=== PATIENT | female | born 1995 | race Caucasian/White ===

== ENCOUNTER 2017-07-12 21:53 | Emergency (ER) | payer MEDICAID, SELFPAY ==
[2017-07-12 21:54] VITALS: BP 137/103; PULSE 120; RESP 28; TEMP 37.2; O2SAT 98; BMI 24.3
[2017-07-12] MEDS: LORazepam 2 MG/ML Syringe IV (22:50)
[2017-07-12 23:00] LABS: Absolute Lymphocyte Count 3.78 X10^3/ul (0.83-4.51); Absolute Neutrophil Count 4.4 X10^3/uL (2.0-7.7); Basophil# 0.03 X10^3/uL; Basophil% 0.3 % (0-1); Eosinophil# 0.03 X10^3/uL; Eosinophils% 0.3 % (0-5); Hematocrit 40.4 % (37-47); Hemoglobin 13.8 g/dl (12.0-15.0); Lymphocyte # 3.78 X10^3/ul (4.0); Lymphocyte % 40.3 % (19-41); Mean Corp Hgb Conc 34.2 g/gl (32-36); Mean Corpuscular Hgb 29.2 pg (27.0-32.0); Mean Corpuscular Volume 85.6 fL (81-99); Mean Platelet Vol. 9.6 fl (6.2-12.0); Monocyte# 1.15 X10^3/uL; Monocyte% 12.2 % (0-10); Neutrophil # 4.38 X10^3/uL (2.7-7.7); Neutrophil % 46.7 % (47-70); Platelet Count 283 K/mm3 (150-450); RBC Distribution Width CV 12.9 % (11.6-14.6); RBC Distribution Width SD 39.9 fl (35.1-43.9); Red Blood Count 4.72 M/mm3 (4.2-5.4); White Blood Count 9.4 K/mm3 (4.4-11.0)
[2017-07-12 23:08] LABS: POSITIVE COUNT NO; POSITIVE DIFFERENTIAL NO; POSITIVE MORPHOLOGY NO
[2017-07-12 23:17] LABS: Anion Gap 8 (5-15); BUN 17 mg/dL (7-18); BUN/Creat Ratio 21.8 RATIO (10-20); Calcium,Total 8.9 mg/dL (8.5-10.1); Chloride 104 mmol/L (98-107); Creatinine, Serum 0.78 mg/dL (0.55-1.02); EST Glomerular Filtration Rate 98 mL/min (>60); Est Glom Filt Rate - Afr Amer 118 mL/min (>60); Estimated Creatinine Clearance 105.91 ml/min; Glucose 84 mg/dL (74-106); Potassium 3.8 mmol/L (3.5-5.1); Sodium Level 140 mmol/L (136-145)
[2017-07-12 23:25] LABS: Alcohol, Blood (Medical)-Serum < 3.0 mg/dL
[2017-07-12 23:43] LABS: Amphetamine Urine VISTA POSITIVE (<1000 ng/mL); Barbiturate Urine VISTA NEGATIVE (< 200 ng/mL); Benzodiazepine Urine VISTA NEGATIVE (< 200 ng/mL); Cocaine Urine VISTA NEGATIVE (< 300 ng/mL); Ecstacy Urine VISTA POSITIVE (< 500 ng/mL); Methadone Urine VISTA NEGATIVE (< 300 ng/mL); PCP Urine VISTA NEGATIVE (< 25 ng/mL); THC Urine VISTA POSITIVE (< 50 ng/mL); Vista UDS pH Range 5
[2017-07-13 00:14] VITALS: BP 137/68; PULSE 112; RESP 22; O2SAT 98
[2017-07-13 01:11] VITALS: RESP 20
--- NOTE | 2017-07-13 01:53 | ED.DCSUM_ITS ---
- ER Visit Summary Date of Service: 07/13/17 Chief Complaint: [Illicit drug use] History of Present Illness: The patient is a 22 F [presents to the emergency department stating that she used methamphetamines yesterday morning and has not been able to come down from her drug high since then. Patient used heroin this morning. Patient also admits to typically injecting meth as well as heroin. Patient feels anxious and jittery. Patient denies feeling suicidal or homicidal. Patient states that she knows the phone number to [facility] and will follow up with them as an outpatient to try to get help for her addiction. Patient denies recent illness.] Physical Examination: [HEENT-PERRLA, EOMI. Cranial nerves II through XII grossly intact. TMs clear. Mucous membranes moist. No adenopathy. Cardiovascular-regular and tachycardic. No murmurs auscultated. Lungs-clear to auscultation, chest wall stable without crepitus or subcu emphysema Abdomen-normoactive bowel sounds, soft, nontender, no rebound or rigidity, no peritoneal signs. Neuro exam-patient hyperactive with pressured speech. No focal neurologic deficits. Extremities-intact ?4, normal range of motion, normal pulses, atraumatic] Test Results: [CBC with differential was normal. Chemistries were normal. Alcohol was less than 3. Toxicology screen was positive for opiates, amphetamines, MDMA, and marijuana] Emergency Department Course and Treatment: [Patient received Ativan 2 mg IV and she was observed for over 3 hours. Patient felt improved and was much more relaxed and able to at this point sit still rather than pace. Patient's fianc? presented to the emergency department. Police also aware patient is here and she does have a warrant out for her arrest.] Treatment Plan: Discharge to home with recommendation that she follow up with [facility] for help with her addiction. [] Disposition: [Discharged home in stable condition] Impression: [Illicit drug use] This note was generated with [employer]Foundry dictation software. It may contain incorrect words, spelling, and punctuation that were not noted in review of the chart prior to signing ED Disposition - Plan for ED Patient: Chief Complaint: Overdose Referrals: Care Physician,No Primary [Primary Care Provider] -
--- NOTE | 2017-07-13 01:54 | ED.DEP ---
ED Disposition - Plan for ED Patient: Chief Complaint: Overdose Instructions: ED Drug Abuse General Referrals: Care Physician,No Primary [Primary Care Provider] - Additional Instructions: Follow up with [facility] for help with your addiction
[2017-07-13 02:21] VITALS: BP 142/71; PULSE 114; RESP 16; O2SAT 97
== END 2017-07-13 02:09 ==
LOC: ED 23:24
PROVIDERS: Emergency Provider Emergency Medicine
DX: F15.90 Other stimulant use, unspecified, uncomplicated (principal); F11.90 Opioid use, unspecified, uncomplicated; F12.90 Cannabis use, unspecified, uncomplicated; F19.90 Other psychoactive substance use, unspecified, uncomplicated; Z72.0 Tobacco use
CPT/HCPCS: 80048; 80307; 80320; 85025; 96374; 99285; A4216; G0480

== ENCOUNTER 2017-12-24 12:08 | Emergency (ER) | payer MEDICAID, SELFPAY ==
[2017-12-24 12:10] VITALS: PULSE 87; RESP 20; TEMP 36.5; O2SAT 97; BMI 25.8
--- NOTE | 2017-12-24 12:51 | ED.RN ---
Addendum entered by Razia Hastings 12/24/17 13:07: PT WAS BROUGHT IN BY [facility]. THEY REMAINED AT BEDSIDE WITH PT. PT WAS SEEN EARLIER AT [facility] AND HAD BEEN MEDICALLY CLEARED TO GO TO THE NURSING HOME PER SHERIFF NOLAND. THE NURSING HOME THEN SENT HER TO ER. PT CONTINUED TO STATE SHE DIDN'T WANT TO BE HERE AND DIDN'T WANT TO GO BACK TO A ROOM. PT ADMITTED TO USING METH AND WAS ABLE TO ANSWER ALL QUESTIONS APPROPRIATELY. [employer] OFFICER CONTACTED PT'S GRANDPARENTS AND GRANDFATHER CAME TO THE ER. HE AGREED TO TAKE PT HOME WITH HIM. PT WAS OFFERED A MEDICAL EXAM BY THE DR BUT SHE REFUSED. PT AMBULATED FROM ER WITH FAMILY AND POLICE OFFICERS. Original Note: PT WAS BROUGHT IN BY [facility]. THEY REMAINED AT THE BEDSIDE. [employer]O OFFICER CONTACTED PTS GRANDFATHER AND HE ARRIVED AND AGREED TO TAKE PT WITH HIM. PT LEFT PRIOR TO DR SEEING HER.
== END 2017-12-24 12:54 | disposition left against medical advice (07) ==
LOC: ED 12:52
PROVIDERS: Emergency Provider Emergency Medicine
DX: R69 Illness, unspecified (principal)

== ENCOUNTER 2018-07-13 08:25 | Emergency (ER) | payer MEDICAID, SELFPAY ==
[2018-07-13 08:26] VITALS: BP 116/87; PULSE 77; RESP 20; TEMP 37.3; O2SAT 96; BMI 29.0
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
--- NOTE | 2018-07-13 09:04 | ED.RN ---
[place] [employer] OFFICER YUKO STOPPED UP TO SPEAK WITH PT REGARDING MULTIPLE COMPLAINTS. THE OFFICER GAVE HER A BUSINESS CARD AND ENCOURAGED HER TO FOLLOW UP WITH HIM
== END 2018-07-13 09:16 | disposition home or self-care (01) ==
PROVIDERS: Emergency Provider Emergency Medicine
DX: F15.10 Other stimulant abuse, uncomplicated (principal); F12.10 Cannabis abuse, uncomplicated; L03.011 Cellulitis of right finger; L03.032 Cellulitis of left toe
CPT/HCPCS: 99284

== ENCOUNTER 2018-08-22 22:07 | Emergency (ER) | payer MEDICAID, SELFPAY ==
[2018-08-22 22:11] VITALS: BP 108/75; PULSE 115; RESP 18; TEMP 36.4; O2SAT 97; BMI 25.8
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
[2018-08-23 00:08] LABS: Vista UDS pH Range 5
[2018-08-23 00:11] LABS: Anion Gap 6 (5-15); BUN 11 mg/dL (7-18); BUN/Creat Ratio 13.9 RATIO (10-20); Calcium,Total 8.4 mg/dL (8.5-10.1); Chloride 102 mmol/L (98-107); Creatinine, Serum 0.79 mg/dL (0.55-1.02); EST Glomerular Filtration Rate 95 mL/min (>60); Est Glom Filt Rate - Afr Amer 115 mL/min (>60); Estimated Creatinine Clearance 103.68 ml/min; Glucose 103 mg/dL (74-106); Potassium 3.4 mmol/L (3.5-5.1); Sodium Level 138 mmol/L (136-145)
[2018-08-23 00:19] LABS: Amphetamine Urine VISTA POSITIVE (<1000 ng/mL); Barbiturate Urine VISTA NEGATIVE (< 200 ng/mL); Benzodiazepine Urine VISTA NEGATIVE (< 200 ng/mL); Cocaine Urine VISTA NEGATIVE (< 300 ng/mL); Ecstacy Urine VISTA NEGATIVE (< 500 ng/mL); Methadone Urine VISTA NEGATIVE (< 300 ng/mL); PCP Urine VISTA NEGATIVE (< 25 ng/mL); THC Urine VISTA POSITIVE (< 50 ng/mL)
[2018-08-23 00:31] LABS: Basophil% 0.2 % (0-1); Eosinophils% 1.3 % (0-5); Hematocrit 39.9 % (37-47); Hemoglobin 13.9 g/dl (12.0-15.0); Lymphocyte % 26.9 % (19-41); Mean Corp Hgb Conc 34.8 g/gl (32-36); Mean Corpuscular Hgb 30.1 pg (27.0-32.0); Mean Corpuscular Volume 86.4 fL (81-99); Mean Platelet Vol. 9.6 fl (6.2-12.0); Monocyte% 10.4 % (0-10); Neutrophil % 61.1 % (47-70); POSITIVE COUNT NO; POSITIVE DIFFERENTIAL NO; POSITIVE MORPHOLOGY NO; Platelet Count 248 K/mm3 (150-450); RBC Distribution Width CV 11.9 % (11.6-14.6); RBC Distribution Width SD 36.9 fl (35.1-43.9); Red Blood Count 4.62 M/mm3 (4.2-5.4); White Blood Count 8.4 K/mm3 (4.4-11.0)
[2018-08-23 00:32] LABS: Absolute Lymphocyte Count 2.27 X10^3/ul (0.83-4.51); Absolute Neutrophil Count 5.2 X10^3/uL (2.0-7.7); Basophil# 0.02 X10^3/uL; Eosinophil# 0.11 X10^3/uL; Lymphocyte # 2.27 X10^3/ul (4.0); Monocyte# 0.88 X10^3/uL; Neutrophil # 5.15 X10^3/uL (2.7-7.7)
--- NOTE | 2018-08-23 01:27 | NURSING ---
NELLY SILVESTRE GOT A VERBAL CONSENT FROM PATIENT AND TOLD US SHE HAD A POSITIVE TEST WHEN THERE ON THE 5TH
--- NOTE | 2018-08-23 01:53 | ED.RN ---
[facility] CALLED FOR TRANSPORT ETA 1 HR TO 1.5 HOURS
[2018-08-23 02:05] VITALS: BP 94/42; PULSE 63; RESP 12; TEMP 36.6; O2SAT 100
[2018-08-23 02:14] VITALS: BP 94/42; PULSE 64; RESP 12; TEMP 36.6; O2SAT 100
== END 2018-08-23 03:16 | disposition short-term general hospital (02) ==
PROVIDERS: Emergency Provider Emergency Medicine
DX: O9A.219 Injury, poisoning and certain other consequences of external causes complicating pregnancy, unspecified trimester (principal); T40.4X1A Poisoning by other synthetic narcotics, accidental (unintentional), initial encounter; Z3A.00 Weeks of gestation of pregnancy not specified; Y92.9 Unspecified place or not applicable
CPT/HCPCS: 36415; 80048; 80307; 80320; 85025; 99285; G0480

== ENCOUNTER 2018-09-28 05:17 | Emergency (ER) | payer MEDICAID, SELFPAY ==
[2018-09-28 05:18] VITALS: BP 121/77; PULSE 112; RESP 17; TEMP 37.1; O2SAT 98; BMI 24.2
--- NOTE | 2018-09-28 05:47 | ED.DCSUM_ITS ---
- ER Visit Summary Date of Service: 09/28/18 Chief Complaint: Rash History of Present Illness: The patient is a 23 F who presents with a rash. This been present for about 3 days. She reports subjective fever. She has noticed multiple scabbed red areas on her face and arms. She does have a history of methamphetamine abuse. Physical Examination: Heart rate 112 vitals otherwise normal Moist mucous membranes Heart regular tachycardia No respiratory distress Patient has multiple wounds over the face hands and arms consistent with skin picking some of these do appear to have some mild surrounding cellulitis. No abscesses. Test Results: Not indicated Emergency Department Course and Treatment: We will treat with Keflex. She understands return for new or worsening symptoms. She was discharged. Treatment Plan: [] Disposition: Discharge Impression: Cellulitis This note was generated with Sferra dictation software. It may contain incorrect words, spelling, and punctuation that were not noted in review of the chart prior to signing ED Disposition - Plan for ED Patient: Referrals: Care Physician,No Primary [Primary Care Provider] -
--- NOTE | 2018-09-28 05:48 | ED.DEP ---
ED Disposition - Plan for ED Patient: Instructions: Cellulitis Prescriptions: Cephalexin [Keflex] 500 mg PO Q6 #40 cap Prescription Printed Referrals: Care Physician,No Primary [Primary Care Provider] -
[2018-09-28 05:59] VITALS: BP 108/69; PULSE 105; RESP 18; O2SAT 100
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
== END 2018-09-28 06:02 | disposition home or self-care (01) ==
PROVIDERS: Emergency Provider Emergency Medicine
DX: L03.90 Cellulitis, unspecified (principal); F15.10 Other stimulant abuse, uncomplicated; Z72.0 Tobacco use
CPT/HCPCS: 99282

== ENCOUNTER 2018-11-10 23:20 | Emergency (ER) | payer MEDICAID, SELFPAY ==
[2018-11-10 23:20] VITALS: BP 123/74; PULSE 81; RESP 15; TEMP 36.7; BMI 24.2
--- NOTE | 2018-11-10 23:51 | ED.VISSUMM ---
- ER Visit Summary Date of Service: 11/10/18 Chief Complaint: Left long finger laceration. History of Present Illness: The patient is a 23 F who presents with a superficial laceration on her left long finger. She states she cut it on glass. This occurred a while ago. No other complaints. Physical Examination: Afebrile vitals unremarkable Heart regular rate and rhythm Lungs clear There is a superficial 0.5 cm laceration on the back of the left long finger between the PIP and DIP normal range of motion no bleeding Test Results: Not indicated Emergency Department Course and Treatment: Patient presents with a small very superficial wound. No wound closure is necessary. We will cleanse and dress this and the patient will be discharged. Treatment Plan: [] Disposition: Discharge Impression: Left long finger laceration This note was generated with [employer] dictation software. It may contain incorrect words, spelling, and punctuation that were not noted in review of the chart prior to signing ED Disposition - Plan for ED Patient: Referrals: Care Physician,No Primary [Primary Care Provider] -
--- NOTE | 2018-11-10 23:52 | ED.DEP ---
ED Disposition - Plan for ED Patient: Instructions: LACERATION, Small/superficial, Not sutured Referrals: Care Physician,No Primary [Primary Care Provider] -
[2018-11-11 00:10] VITALS: RESP 18
--- NOTE | 2018-11-11 00:19 | ED.RN ---
making contact with [facility] for possible rehab placement. patient at this not able to stay awake during assessment from [facility] for rehab. patient has a possible bed at rehab in [place].Patient needs to be more awake to be admitted. at this time we will watch patient and give [facility] a call back when patient is more awake and willing to answer questions
[2018-11-11 06:00] VITALS: RESP 14
[2018-11-11 10:44] VITALS: RESP 18
== END 2018-11-11 10:46 | disposition short-term general hospital (02) ==
PROVIDERS: Emergency Provider Emergency Medicine
DX: S61.213A Laceration without foreign body of left middle finger without damage to nail, initial encounter (principal); W25.XXXA Contact with sharp glass, initial encounter; Y93.9 Activity, unspecified; Y92.9 Unspecified place or not applicable
CPT/HCPCS: 99282

== ENCOUNTER 2018-12-05 10:14 | Emergency (ER) | payer MEDICAID, SELFPAY ==
[2018-12-05 10:17] VITALS: BP 131/87; PULSE 117; RESP 18; TEMP 36.4; O2SAT 97; BMI 28.1
--- NOTE | 2018-12-05 10:33 | RAD_ITS ---
STUDY: X-RAY - RIGHT HAND REASON FOR EXAM: Female, 23 years old. Redness and swelling of the third digit. TECHNIQUE: 3 view(s) of the hand. COMPARISON: None. FINDINGS: Normal radiocarpal articulation. Normal distal radioulnar joint. Normal visualized carpal bones. Normal carpal articulations Normal carpometacarpal articulation of the thumb. Normal second through fifth carpometacarpal joints. Normal metacarpi. Normal metacarpophalangeal joint of the thumb. Normal interphalangeal joint of the thumb. Normal proximal and distal phalanges of the thumb. Normal metacarpophalangeal joints of the second through fifth fingers. Normal proximal and distal interphalangeal joints of the second through fifth fingers. Normal phalanges of the second through fifth fingers. Soft tissue swelling. RAD/Hand Min 3 Views IMPRESSION: Soft tissue swelling. Electronically Signed: Ludwin Lincoln, at 11:20 EDT , Service support ,
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
--- NOTE | 2018-12-05 10:39 | NURSING ---
CALLED DR FLORES'S OFFICE. IS OUT OF THE OFFICE, THEY ARE TAKING INFO FROM DR OSBORN
--- NOTE | 2018-12-05 11:05 | NURSING ---
CALLED [facility] FOR TRANSFER
[2018-12-05] MEDS: HYDROcodone Bitartrate/Apap 5/325 Tablet PO (12:34)
--- NOTE | 2018-12-05 13:09 | NURSING ---
GOING TO [facility]
[2018-12-05 14:25] VITALS: BP 104/68; PULSE 103; RESP 18; O2SAT 98
--- NOTE | 2018-12-05 14:27 | ED.RN ---
TRANSPORT AT BEDSIDE. REPORT GIVEN. DENIES QUESTIONS.
== END 2018-12-05 14:28 | disposition short-term general hospital (02) ==
PROVIDERS: Emergency Provider Emergency Medicine
DX: O99.712 Diseases of the skin and subcutaneous tissue complicating pregnancy, second trimester (principal); L03.011 Cellulitis of right finger; O99.322 Drug use complicating pregnancy, second trimester; F19.10 Other psychoactive substance abuse, uncomplicated; O99.332 Smoking (tobacco) complicating pregnancy, second trimester; F17.200 Nicotine dependence, unspecified, uncomplicated; Z3A.00 Weeks of gestation of pregnancy not specified
CPT/HCPCS: 73130; 99285; A4216

== ENCOUNTER 2019-01-14 13:57 | Emergency (ER) | payer MEDICAID, SELFPAY ==
[2019-01-14 13:58] VITALS: TEMP 36.6; BMI 29.9
--- NOTE | 2019-01-14 14:07 | ED.RN ---
pt left without vs being checked and refused. pt aware of concerns for baby but states it is fine. pt leaves without being seen by the dr. pt did allow heartrte to be checked and was in the 130's. it was difficult because the pt was unable to remain completely still.
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
== END 2019-01-14 14:26 | disposition left against medical advice (07) ==
PROVIDERS: Emergency Provider Emergency Medicine
DX: Z53.21 Procedure and treatment not carried out due to patient leaving prior to being seen by health care provider (principal)
CPT/HCPCS: 99282

== ENCOUNTER 2019-02-16 01:40 | Outpatient (CLI) | payer MEDICAID, SELFPAY ==
[2019-02-16 02:38] VITALS: BMI 27.4
[2019-02-16 03:19] LABS: Absolute Lymphocyte Count 1.75 X10^3/uL (0.83-4.51); Absolute Neutrophil Count 5.6 X10^3/uL (2.0-7.7); Basophil# 0.03 X10^3/uL; Basophil% 0.4 % (0-1); Eosinophil# 0.09 X10^3/uL; Eosinophils% 1.1 % (0-5); Hematocrit 30.9 % (37-47); Hemoglobin 10.4 g/dL (12.0-15.0); Lymphocyte # 1.75 X10^3/ul (4.0); Lymphocyte % 21.8 % (19-41); Mean Corp Hgb Conc 33.7 g/dL (32-36); Mean Corpuscular Hgb 28.3 pg (27.0-32.0); Mean Corpuscular Volume 84.2 fL (81-99); Mean Platelet Vol. 9.6 fl (6.2-12.0); Monocyte# 0.55 X10^3/uL; Monocyte% 6.8 % (0-10); NRBC Flagged by Analyzer 0 % (0-5); Neutrophil # 5.58 X10^3/uL (2.7-7.7); Neutrophil % 69.5 % (47-70); Platelet Count 319 K/mm3 (150-450); RBC Distribution Width CV 11.9 % (11.6-14.6); RBC Distribution Width SD 36.6 fl (35.1-43.9); Red Blood Count 3.67 M/mm3 (4.2-5.4)
[2019-02-16 03:51] LABS: ALB/GLOB Ratio 0.4 RATIO (0.9-2.4); AST(SGOT) 41 U/L (15-37); Alanine Aminotransfer ALT/SGPT 42 U/L (13-56); Albumin, Serum 2.1 g/dL (3.2-5.0); Alkaline Phosphatase 151 U/L (45-117); Anion Gap 10 (5-15); BUN 14 mg/dL (7-18); BUN/Creat Ratio 19.6 RATIO (10-20); Calcium,Total 8.2 mg/dL (8.5-10.1); Chloride 102 mmol/L (98-107); Creatinine, Serum 0.72 mg/dL (0.55-1.02); EST Glomerular Filtration Rate 106 mL/min (>60); Est Glom Filt Rate - Afr Amer 129 mL/min (>60); Estimated Creatinine Clearance 112.79 ml/min; Globulin 4.7 g/dL (2.2-4.2); Glucose 100 mg/dL (74-106); Potassium 3.3 mmol/L (3.5-5.1); Protein, Total 6.8 g/dL (6.4-8.2); Sodium Level 137 mmol/L (136-145)
[2019-02-16 04:13] LABS: Amphetamine Urine VISTA POSITIVE (<1000 ng/mL); Barbiturate Urine VISTA NEGATIVE (< 200 ng/mL); Benzodiazepine Urine VISTA NEGATIVE (< 200 ng/mL); Cocaine Urine VISTA NEGATIVE (< 300 ng/mL); Ecstacy Urine VISTA NEGATIVE (< 500 ng/mL); Methadone Urine VISTA NEGATIVE (< 300 ng/mL); PCP Urine VISTA NEGATIVE (< 25 ng/mL); THC Urine VISTA POSITIVE (< 50 ng/mL); Vista UDS pH Range 6
--- NOTE | 2019-02-16 05:36 | NURSING ---
Patient signed out AMA at 0248. No discharge medical screening score completed for this reason.
[2019-02-16 07:32] LABS: Hemoglobin A1c 5.5 % (4.2-6.3)
[2019-02-19 11:45] LABS: HCV Quant. RNA PCR <15 IU/mL (.)
--- NOTE | 2019-02-19 13:16 | OB.TRI.HP_ITS ---
History of Present Illness Date of Service: 02/16/19 Reason For Visit: R/O Date of Service: 02/16/19 Final MARYANN: 04/18/19 Gestational age: 31 Weeks and 2 Days Allergies No Known Allergies Allergy (Verified 12/05/18 10:16) Laboratory Studies: Laboratory Tests 02/16/19 02/16/19 02/16/19 Range/Units 02:45 02:45 02:45 WBC (4.4-11.0) K/mm3 RBC (4.2-5.4) M/mm3 Hgb (12.0-15.0) g/dL Hct (37-47) % MCV (81-99) fL MCH (27.0-32.0) pg MCHC (32-36) g/dL RDW Std Deviation (35.1-43.9) fl RDW Coeff of He (11.6-14.6) % Plt Count (150-450) K/mm3 MPV (6.2-12.0) fl Immature Gran % (Auto) (0.0-0.9) % Neut % (Auto) (47-70) % Lymph % (Auto) (19-41) % Childress % (Auto) (0-10) % Eos % (Auto) (0-5) % Baso % (Auto) (0-1) % Absolute Neuts (auto) (2.0-7.7) X10^3/uL Absolute Lymphs (auto) (0.83-4.51) X10^3/uL Nucleated RBC % (0-5) % Sodium (136-145) mmol/L Potassium (3.5-5.1) mmol/L Chloride (98-107) mmol/L Carbon Dioxide (21.0-32.0) mmol/L Anion Gap (5-15) BUN (7-18) mg/dL Creatinine (0.55-1.02) mg/dL Estim Creat Clear Calc ml/min Est GFR (MDRD) Af Amer (>60) mL/min Est GFR (MDRD) Non-Af (>60) mL/min BUN/Creatinine Ratio (10-20) RATIO Glucose (74-106) mg/dL Hemoglobin A1c (4.2-6.3) % Calcium (8.5-10.1) mg/dL Total Bilirubin (0.20-1.00) mg/dL AST (15-37) U/L ALT (13-56) U/L Alkaline Phosphatase (45-117) U/L Total Protein (6.4-8.2) g/dL Albumin (3.2-5.0) g/dL Globulin (2.2-4.2) g/dL Albumin/Globulin Ratio (0.9-2.4) RATIO Urine Opiates Screen POSITIVE H (< 300 ng/mL) Urine Methadone Screen NEGATIVE (< 300 ng/mL) Ur Barbiturates Screen NEGATIVE (< 200 ng/mL) Ur Phencyclidine Scrn NEGATIVE (< 25 ng/mL) Ur Amphetamines Screen POSITIVE H (<1000 ng/mL) U Methamphetamin-MDMA NEGATIVE (< 500 ng/mL) U Benzodiazepines Scrn NEGATIVE (< 200 ng/mL) Urine Cocaine Screen NEGATIVE (< 300 ng/mL) U Cannabinoids Screen POSITIVE H (< 50 ng/mL) Ur Drug Screen Comment HCV RNA Quant (PCR) <15 (.) IU/mL HCV RNA (PCR) IU log10 TNP HCV RNA PCR Test Info Comment (.) Blood Type O NEGATIVE Antibody Screen NEGATIVE 02/16/19 02/16/19 02/16/19 Range/Units 02:45 02:45 02:45 WBC 8.0 (4.4-11.0) K/mm3 RBC 3.67 L (4.2-5.4) M/mm3 Hgb 10.4 L (12.0-15.0) g/dL Hct 30.9 L (37-47) % MCV 84.2 (81-99) fL MCH 28.3 (27.0-32.0) pg MCHC 33.7 (32-36) g/dL RDW Std Deviation 36.6 (35.1-43.9) fl RDW Coeff of He 11.9 (11.6-14.6) % Plt Count 319 (150-450) K/mm3 MPV 9.6 (6.2-12.0) fl Immature Gran % (Auto) 0.400 (0.0-0.9) % Neut % (Auto) 69.5 (47-70) % Lymph % (Auto) 21.8 (19-41) % Childress % (Auto) 6.8 (0-10) % Eos % (Auto) 1.1 (0-5) % Baso % (Auto) 0.4 (0-1) % Absolute Neuts (auto) 5.6 (2.0-7.7) X10^3/uL Absolute Lymphs (auto) 1.75 (0.83-4.51) X10^3/uL Nucleated RBC % 0 (0-5) % Sodium 137 (136-145) mmol/L Potassium 3.3 L (3.5-5.1) mmol/L Chloride 102 (98-107) mmol/L Carbon Dioxide 25.0 (21.0-32.0) mmol/L Anion Gap 10 (5-15) BUN 14 (7-18) mg/dL Creatinine 0.72 (0.55-1.02) mg/dL Estim Creat Clear Calc 112.79 ml/min Est GFR (MDRD) Af Amer 129 (>60) mL/min Est GFR (MDRD) Non-Af 106 (>60) mL/min BUN/Creatinine Ratio 19.6 (10-20) RATIO Glucose 100 (74-106) mg/dL Hemoglobin A1c 5.5 (4.2-6.3) % Calcium 8.2 L (8.5-10.1) mg/dL Total Bilirubin 0.40 (0.20-1.00) mg/dL AST 41 H (15-37) U/L ALT 42 (13-56) U/L Alkaline Phosphatase 151 H (45-117) U/L Total Protein 6.8 (6.4-8.2) g/dL Albumin 2.1 L (3.2-5.0) g/dL Globulin 4.7 H (2.2-4.2) g/dL Albumin/Globulin Ratio 0.4 L (0.9-2.4) RATIO Urine Opiates Screen (< 300 ng/mL) Urine Methadone Screen (< 300 ng/mL) Ur Barbiturates Screen (< 200 ng/mL) Ur Phencyclidine Scrn (< 25 ng/mL) Ur Amphetamines Screen (<1000 ng/mL) U Methamphetamin-MDMA (< 500 ng/mL) U Benzodiazepines Scrn (< 200 ng/mL) Urine Cocaine Screen (< 300 ng/mL) U Cannabinoids Screen (< 50 ng/mL) Ur Drug Screen Comment HCV RNA Quant (PCR) (.) IU/mL HCV RNA (PCR) IU log10 HCV RNA PCR Test Info (.) Blood Type Antibody Screen NST - FHR Rate Baby A Baseline: 130 Variability:: Moderate Accelerations:: 15 x 15 Decelerations:: None NST Reactive:: Yes, Appropriate for gestational age FHR Category:: Category I Uterine Activity:: irreg ctxs Impression/Plan 24-year-old 2 para 1 at 31+ gestational weeks, risk multigravida, hepatitis C infection, 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 labor. Patient was evaluated and found not to be in labor. She is to follow-up with her primary INVESTMENT ANALYST as scheduled or as needed. Return with any other questions or concerns.
[2019-02-21 03:06] LABS: Amphetamine Positive (.); AmphetamineGC/MS Conf 3250 ng/mL (Cutoff=500); Methamphetamines Positive (.)
[2019-02-21 06:49] LABS: Amphetamine Ur Confirm Positive (.)
== END 2019-02-16 02:48 | disposition home or self-care (01) ==
LOC: WPOUT 01:56 → WP 01:57
PROVIDERS: Referring Provider Obstetrics & Gynecology; Visit Provider Obstetrics & Gynecology
DX: O98.413 Viral hepatitis complicating pregnancy, third trimester (principal); B19.20 Unspecified viral hepatitis C without hepatic coma; O99.323 Drug use complicating pregnancy, third trimester; F12.10 Cannabis abuse, uncomplicated; F11.10 Opioid abuse, uncomplicated; F15.10 Other stimulant abuse, uncomplicated; O60.03 Preterm labor without delivery, third trimester; Z3A.31 31 weeks gestation of pregnancy
CPT/HCPCS: 59025; 59050; 80053; 80307; 83036; 85025; 86850; 86900; 86901; 87522; 99218; G0378

== ENCOUNTER 2019-06-10 16:39 | Emergency (ER) | payer MEDICAID, SELFPAY ==
[2019-02-28 13:26] VITALS: BMI 27.1
[2019-06-10 16:42] VITALS: BP 112/81; PULSE 122; RESP 16; TEMP 37.2; O2SAT 98; BMI 24.6
--- NOTE | 2019-06-10 17:28 | RAD_ITS ---
STUDY: X-RAY - RIGHT HAND REASON FOR EXAM: Female, 24 years old. Punched a wall. Pain. TECHNIQUE: 3 view(s) of the hand. COMPARISON: None. FINDINGS: Normal radiocarpal articulation. Normal distal radioulnar joint. Normal visualized carpal bones. Normal carpal articulations Normal carpometacarpal articulation of the thumb. Normal second through fifth carpometacarpal joints. Normal metacarpi. Normal metacarpophalangeal joint of the thumb. Normal interphalangeal joint of the thumb. Normal proximal and distal phalanges of the thumb. Normal metacarpophalangeal joints of the second through fifth fingers. Normal proximal and distal interphalangeal joints of the second through fifth fingers. Normal phalanges of the second through fifth fingers. There is soft tissue swelling over the dorsum of the hand. RAD/Hand Min 3 Views IMPRESSION: Soft tissue swelling without visualized fracture or dislocation. Electronically Signed: Eriberto Logan DO at 18:36 EST Tel [phone], Service support ,
--- NOTE | 2019-06-10 17:28 | RAD_ITS ---
STUDY: X-RAY CHEST REASON FOR EXAM: Female, 24 years old. Opioid withdrawal at 33 weeks'' . Short of breath. TECHNIQUE: Single AP portable view of the chest. COMPARISON: None. FINDINGS: The lungs are clear and expanded. There is no demonstrated pleural abnormality. Normal size heart. Normal mediastinum and trista. Normal visualized pulmonary arteries. Normal visualized aortic arch and descending thoracic aorta. Normal visualized thoracic spine. Normal visualized ribs, clavicles, and shoulders. There is no demonstrated abnormality of the visualized soft tissue structures of the upper abdomen. RAD/Chest PA and Lateral IMPRESSION: No acute cardiopulmonary disease. Electronically Signed: Eriberto Logan DO at 18:31 EST Tel [phone], Service support ,
[2019-06-10] MEDS: Ondansetron ODT 4 MG Tablet PO (17:54)
--- NOTE | 2019-06-10 18:20 | ED.DCSUM_ITS ---
- ER Visit Summary Date of Service: 06/10/19 Chief Complaint: Right hand pain History of Present Illness: The patient is a 24 F with no primary care physician. She reports that 2 days ago she punched a wall because she was angry. She has a sharp pain over her the back of her hand that is 9 out of 10 in severity. She is right-hand dominant. Patient reports that just prior to coming emerge department a mirror shattered and fell on her. She states that she has glass in her right ring finger, chin, right fourth toe, and back. Her tetanus is up-to-date. Physical Examination: Vitals: Stable. Afebrile. General: Well-nourished and well-developed. Head: Normocephalic atraumatic. Neck: Supple, no lymphadenopathy. No JVD. Nontender. Cardiovascular: Regular rate and rhythm. No murmurs. Respiratory: No respiratory distress. Clear to auscultation bilaterally. Abdominal: Soft, nontender, nondistended, normal bowel sounds. No guarding, rebound, or peritoneal signs. Back: Nontender. Extremities: Mild soft tissue swelling and contusion to the back of her right fourth and fifth metacarpals. She is neuro vas intact distal to this, no edema. Skin: Patient has multiple superficial erosions over her face her upper and lower extremities and her trunk from picking. I do not appreciate glass in any of these. She has track eric to her right forearm without erythema, induration, or fluctuance to suggest infection.. Neurologic: Alert and oriented ?3. Cranial nerves II through XII are intact. Normal strength and sensation. Psych: Agitated and clearly intoxicated. Test Results: Clinical Impression(s) from Imaging Studies Chest X-Ray 06/10/19 17:28 IMPRESSION: No acute cardiopulmonary disease. Electronically Signed: Eriberto Logan DO at 18:31 EST Tel [phone], Service support , Hand X-Ray 06/10/19 17:28 IMPRESSION: Soft tissue swelling without visualized fracture or dislocation. Electronically Signed: Eriberto Logan DO at 18:36 EST Tel [phone], Service support , Emergency Department Course and Treatment: I discussed with the patient that I do not think that there is glass stuck in the areas that she is complaining of. I certainly do not feel any glass or see a wound underneath her chin. She does not have glass underneath her toenail. I x-rayed her hand and I do not see any glass on the x-ray. I do not think that trying to remove glass from all of these places in her best interest. She asked for tweezers to remove this herself. I think that that is an even worse plan as the patient is currently high on amphetamines and picking the entire time she is here. Treatment Plan: Patient will be discharged with instructions to follow-up [facility] in 1 to 2 days if not improving. She is also instructed to follow-up with the [facility] as soon as possible. Return to the emergency department for any worsening symptoms. Disposition: To home in improved and stable condition. Impression: 1. Right hand contusion. 2. Methamphetamine abuse. 3. Opiate abuse. This note was generated with [employer] software. It may contain incorrect words, spelling, and punctuation that were not noted in review of the chart prior to signing ED Disposition - Plan for ED Patient: Disposition: Home or Assisted Living Instructions: CONTUSION, Hand Referrals: [facility] [NON-STAFF] - 1 Week if not improving
[2019-06-10 18:29] VITALS: PULSE 118; RESP 16; O2SAT 98
== END 2019-06-10 18:30 | disposition home or self-care (01) ==
PROVIDERS: Emergency Provider Emergency Medicine
DX: S60.221A Contusion of right hand, initial encounter (principal); F15.10 Other stimulant abuse, uncomplicated; F11.10 Opioid abuse, uncomplicated; R05 Cough; X58.XXXA Exposure to other specified factors, initial encounter; Y93.9 Activity, unspecified; Y92.9 Unspecified place or not applicable; F17.200 Nicotine dependence, unspecified, uncomplicated
CPT/HCPCS: 71046; 73130; 99284

== ENCOUNTER 2019-06-11 01:41 | Emergency (ER) | payer MEDICAID, SELFPAY ==
[2019-06-10 16:42] VITALS: BMI 24.6
[2019-06-11 01:42] VITALS: BP 114/81; PULSE 103; RESP 14; TEMP 36.9; O2SAT 98; BMI 26.4
--- NOTE | 2019-06-11 02:25 | ED.DCSUM_ITS ---
- ER Visit Summary Date of Service: 06/11/19 Chief Complaint: Overdose History of Present Illness: The patient is a 24 F presenting per EMS after overdose. Patient was found on her bedroom floor. EMS was called. She had agonal respirations. She was given nasal Narcan and became responsive. In the ED she is now asymptomatic. She denies suicidal ideation. She states she must have accidentally injected too much fentanyl to get high. Denies other complaints. Physical Examination: Vitals are stable. Patient is afebrile. Alert no acute distress. HEENT exam is unremarkable. Neck is supple. Lungs are clear and equal bilaterally. Heart is regular rate and rhythm. Abdomen is soft nontender nondistended. Extremities are unremarkable. Skin is warm and dry. No focal neurologic deficit. Remainder of exam is unremarkable. Emergency Department Course and Treatment: She was observed in the ED. She remains asymptomatic. Her pulse ox remains 100% on room air. Advised to follow-up with [facility]. Advised return to ED for worsening complaints. Disposition: Discharge home Impression: Unintentional fentanyl overdose This note was generated with [employer] dictation software. It may contain incorrect words, spelling, and punctuation that were not noted in review of the chart prior to signing ED Disposition - Plan for ED Patient: Instructions: OVERDOSE, Opiate Referrals: [facility] [STAFF PHYSICIAN] -
--- NOTE | 2019-06-11 02:42 | ED.RN ---
Mom called, she will come and pt up. PT declines rape kit.
[2019-06-11 03:04] VITALS: BP 109/75; PULSE 105; RESP 18; O2SAT 100
== END 2019-06-11 03:05 | disposition home or self-care (01) ==
LOC: ED 02:35
PROVIDERS: Emergency Provider Emergency Medicine
DX: T40.4X1A Poisoning by other synthetic narcotics, accidental (unintentional), initial encounter (principal); Y92.9 Unspecified place or not applicable; F90.9 Attention-deficit hyperactivity disorder, unspecified type; Z72.0 Tobacco use
CPT/HCPCS: 99284

== ENCOUNTER 2019-06-19 14:22 | Emergency (ER) | payer MEDICAID, SELFPAY ==
[2019-06-19] VITALS (9 sets, daily range): BP systolic 103–135; BP diastolic 42–110; PULSE 84–110; RESP 16–18; TEMP 36.4; O2SAT 96–100; BMI 25.2
--- NOTE | 2019-06-19 14:29 | ED.VIS.GEN ---
History of Present Illness Chief Complaint: Substance Abuse Informant: Patient Limited by: Intoxicated Onset: Today Context: Sudden Onset Timing: Continuous Current Severity: Severe Maximum Severity: Severe Narrative: The patient is a 24-year-old female with medical history significant for polysubstance abuse that presents to the emergency department with acute methamphetamine intoxication. Police were called because of abnormal behavior. The patient states that she snorted 2 lines of what she thought was methamphetamine. She states I am having a bad trip. The patient is very internally stimulated, agitated, and aggressive. She denies being suicidal or homicidal, but history is hard to gather given her significant distress. The police states that she did not make any threats of self-harm. Prior similar symptoms: Yes Recent Illness/Hospitalization: No Past Medical History - Allergies and Home Meds Allergies/Adverse Reactions: Allergies No Known Allergies Allergy (Verified 06/19/19 14:32) Primary Care Physician: Care Physician,No Primary [Primary Care Provider] - Prior records reviewed: Yes Past Medical History: - - Substance abuse Smoking Status: Current every day smoker Review of Systems General: Denies: Chills, Fever, Sweats Eyes: Denies: Visual changes - bilaterally, Diplopia ENT: Denies: Rhinorrhea, Sore throat Cardiovascular: Denies: Chest pain, Palpitations Respiratory: Denies: Dyspnea, Cough, Dyspnea on exertion Gastrointestinal: Denies: Abdominal pain, Nausea, Vomiting, Diarrhea, Melena, Hematochezia Genitourinary: Denies: Dysuria, Hematuria, Frequency Musculoskeletal: Denies: Back pain, Extremity Pain Skin: Denies: Rash, Wounds Neurological: Denies: Headache, Weakness, Numbness Psych: Reports: Anxiety Physical Exam Inital Vital Signs reviewed: Yes General: Unkempt Head: Normocephalic, Atraumatic Eyes: Perrl ENT: Moist mucous membranes, No rhinorrhea Neck: Supple, Nontender, No lymphadenopathy Cardiovascular: Regular rate, Tachycardia Respiratory: No distress, CTA bilaterally, Chest nontender Abdomen: Soft, Nontender, Nondistended Back: Nontender Extremities: Nontender Skin: Normal color. Negative for: Cyanosis, Pallor, Rash Neurological: Hyperalert Psychological: Agitated Diagnostic/Tx/Re-eval - Medical Decision Making The patient presents with drug intoxication. She is internally stimulated. She denies being suicidal or homicidal, but is markedly agitated and aggressive. The patient was given IM medications of Geodon, Benadryl, and Ativan. The patient will undergo metabolic screening and will be observed. As long as she has returned to her baseline, and has no psychiatric complaints, I do feel that she can safely be discharged with outpatient substance abuse information. She will be reevaluated by oncoming physician. Impression 1. Methamphetamine abuse with intoxication ED Disposition - Plan for ED Patient: Instructions: Drug Abuse Referrals: Care Physician,No Primary [Primary Care Provider] -
[2019-06-19] MEDS: DiphenhydrAMINE 50 MG/ML Syringe IM (14:40)
[2019-06-19] MEDS: Ziprasidone IM 20 MG/ML VIAL IM (14:40)
[2019-06-19] MEDS: LORazepam 2 MG/ML Syringe IM (14:40)
[2019-06-19 15:53] LABS: Absolute Lymphocyte Count 1.66 X10^3/uL (0.83-4.51); Absolute Neutrophil Count 14.7 X10^3/uL (2.0-7.7); Basophil# 0.04 X10^3/uL; Basophil% 0.2 % (0-1); Eosinophil# 0.05 X10^3/uL; Eosinophils% 0.3 % (0-5); Hematocrit 34.2 % (37-47); Hemoglobin 10.9 g/dL (12.0-15.0); Lymphocyte # 1.66 X10^3/ul (4.0); Lymphocyte % 9.5 % (19-41); Mean Corp Hgb Conc 31.9 g/dL (32-36); Mean Corpuscular Hgb 24.8 pg (27.0-32.0); Mean Corpuscular Volume 77.7 fL (81-99); Mean Platelet Vol. 9.2 fl (6.2-12.0); Monocyte# 0.89 X10^3/uL; Monocyte% 5.1 % (0-10); NRBC Flagged by Analyzer 0 % (0-5); Neutrophil # 14.73 X10^3/uL (2.7-7.7); Neutrophil % 84.3 % (47-70); Platelet Count 329 K/mm3 (150-450); RBC Distribution Width CV 17.1 % (11.6-14.6); RBC Distribution Width SD 48.4 fl (35.1-43.9); White Blood Count 17.5 K/mm3 (4.4-11.0)
[2019-06-19 16:01] LABS: Internal QC Validated? YES +Cl - CLEAR BKGD; Pregnancy, Serum, hCG Quali. NEGATIVE Negative
[2019-06-19 16:05] LABS: Anion Gap 10 (5-15); BUN 24 mg/dL (7-18); BUN/Creat Ratio 29.4 RATIO (10-20); Calcium,Total 8.6 mg/dL (8.5-10.1); Chloride 104 mmol/L (98-107); Creatinine, Serum 0.82 mg/dL (0.55-1.02); EST Glomerular Filtration Rate 91 mL/min (>60); Est Glom Filt Rate - Afr Amer 111 mL/min (>60); Estimated Creatinine Clearance 99.03 ml/min; Glucose 61 mg/dL (74-106); Sodium Level 139 mmol/L (136-145)
[2019-06-19 16:31] LABS: Alcohol, Blood (Medical)-Serum < 3.0 mg/dL
--- NOTE | 2019-06-19 23:22 | ED.RN ---
ATTEMPTED TO WAKE PT UP. PT UNABLE TO COMPLETELY OPEN HER EYES AND STAY AWAKE. DR SHAW NOTIFIED. WILL LET PT SLEEP LONGER AND ATTEMPT AGAIN
[2019-06-20 00:02] VITALS: BP 105/76; PULSE 82; RESP 16; O2SAT 98
--- NOTE | 2019-06-20 00:03 | ED.RN ---
THIS NURSE REVIEWED D/C INSTRUCTIONS WITH PT. PT VERBALIZED UNDERSTANDING. PT BEING TAKEN HOME BY JESSICA AKHTAR
== END 2019-06-20 00:05 | disposition home or self-care (01) ==
LOC: ED 15:20
PROVIDERS: Emergency Provider Emergency Medicine
DX: F15.129 Other stimulant abuse with intoxication, unspecified (principal); F17.200 Nicotine dependence, unspecified, uncomplicated
CPT/HCPCS: 80048; 80320; 84703; 85025; 96372; 99282; G0480; J3486

== ENCOUNTER 2019-08-04 18:53 | Emergency (ER) | payer MEDICAID, SELFPAY ==
[2019-06-19 14:24] VITALS: BMI 25.2
[2019-08-04 18:53] VITALS: BP 123/55; PULSE 107; RESP 17; TEMP 36.2; O2SAT 96; BMI 25.0
--- NOTE | 2019-08-04 19:07 | ED.VIS.GEN ---
History of Present Illness Chief Complaint: Abscess Informant: Patient Onset: Days Context: Gradual Onset Timing: Continuous Current Severity: Moderate Maximum Severity: Moderate Narrative: Patient is a 24-year-old female with history of methamphetamine abuse that presents to the emergency department with facial abscess. Patient states that she will get cellulitis from picking. She states that she has not been picking, but noticed an abscess about 2 days ago. She states that she did cut it and it did drain and decreased in size, but it is still red and painful. She does not think she is had fever. She denies any history of immunosuppression. She denies any trauma. She is on no daily medications. Prior similar symptoms: Yes Recent Illness/Hospitalization: Yes Past Medical History - Allergies and Home Meds Allergies/Adverse Reactions: Allergies No Known Allergies Allergy (Verified 08/04/19 18:53) Primary Care Physician: Care Physician,No Primary [Primary Care Provider] - Prior records reviewed: Yes Past Medical History: None Surgical History: no surgical history Smoking Status: Current every day smoker Review of Systems General: Denies: Chills, Fever, Sweats Eyes: Denies: Visual changes - bilaterally, Diplopia ENT: Denies: Rhinorrhea, Sore throat Cardiovascular: Denies: Chest pain, Palpitations Respiratory: Denies: Dyspnea, Cough, Dyspnea on exertion Gastrointestinal: Denies: Abdominal pain, Nausea, Vomiting, Diarrhea, Melena, Hematochezia Genitourinary: Denies: Dysuria, Hematuria, Frequency Musculoskeletal: Denies: Back pain, Extremity Pain Skin: Denies: Rash, Wounds Neurological: Denies: Headache, Weakness, Numbness Physical Exam Vital Signs/Narrative: Vital Signs Temp Pulse Resp BP Pulse Ox 08/04/19 18:53 97.2 F L 107 H 17 123/55 H 96 Inital Vital Signs reviewed: Yes General: Well nourished, Well developed, No Acute Distress Head: Normocephalic, Atraumatic, - - 2 cm ovoid abscess on the left forehead. No cellulitis or streaking. No fullness in the periorbital region. Eyes: Perrl, EOMI ENT: Moist mucous membranes, No rhinorrhea Neck: Supple, Nontender Cardiovascular: Regular rate, Regular rhythm, No murmurs Respiratory: No distress, CTA bilaterally, Chest nontender Abdomen: Soft, Nontender, Nondistended, Normal bowel sounds Back: Nontender, Normal Inspection Extremities: Nontender, No edema Skin: Normal color, No rash Neurological: Alert, Oriented x3, Cranial nerves II-XII grossly intact, Normal Strength, Normal Sensation Psychological: Normal affect, Normal Mood Diagnostic/Tx/Re-eval - Medical Decision Making The patient presents with facial abscess. I did feel this was going to require incision and drainage for appropriate care. The area was anesthetized with 3 cc of lidocaine with epinephrine. At the area of spontaneous drainage, hemostats were used to open it slightly as I did not to make an incision on the face. It did appear to be an infected sebaceous cyst. The entire cyst pocket was removed. As it does involve the face and the patient has history of MRSA, she will be placed on Bactrim. She was counseled on local wound care and reasons to return. She will be discharged home. Impression 1. Facial abscess with incision and drainage ED Disposition - Plan for ED Patient: Instructions: ED Abscess Incision And Drainage Prescriptions: Smz/Tmp Ds [Bactrim Ds] 1 tab PO BID #14 tab Prescription Printed Referrals: Care Physician,No Primary [Primary Care Provider] -
[2019-08-04 19:35] VITALS: RESP 17
== END 2019-08-04 19:40 | disposition home or self-care (01) ==
LOC: ED 19:42
PROVIDERS: Emergency Provider Emergency Medicine
DX: L02.01 Cutaneous abscess of face (principal); Z86.14 Personal history of Methicillin resistant Staphylococcus aureus infection; F17.200 Nicotine dependence, unspecified, uncomplicated
CPT/HCPCS: 10060; 99283

== ENCOUNTER 2019-12-27 01:17 | Emergency (ER) | payer MEDICAID, SELFPAY ==
[2019-12-27 01:18] VITALS: BP 117/80; PULSE 101; RESP 18; TEMP 36.3; O2SAT 99; BMI 27.3
--- NOTE | 2019-12-27 01:46 | ED.DCSUM_ITS ---
History of Present Illness Chief Complaint: Rash Informant: Patient Onset: Weeks Current Severity: Moderate Maximum Severity: Moderate Narrative: Patient present secondary to yeast infection and concern for scabies. She states in October her dog had mange. She is concerned that she contracted this from her dog. She has had problems with itching ever since. She states that she also has what she believes is a yeast infection. She states she was treated in early November at urgent care but symptoms have recurred and she is requesting the same treatment as it did seem to help. On review of records it appears she was given permethrin cream as well as p.o. Flagyl for bacterial vaginosis. The remainder of her STD testing at that time came back negative. - Past Medical History (1) ADHD Status: Chronic (2) Anxiety and depression Status: Chronic Past Medical History - Allergies and Home Meds Allergies/Adverse Reactions: Allergies No Known Allergies Allergy (Verified 12/27/19 01:21) Primary Care Physician: Care Physician,No Primary [Primary Care Provider] - Surgical History: no surgical history Smoking Status: Current every day smoker Review of Systems General: Denies: Chills, Fever Eyes: Denies: Visual changes - bilaterally ENT: Denies: Bilateral ear pain Cardiovascular: Denies: Chest pain Respiratory: Denies: Dyspnea, Cough Gastrointestinal: Denies: Abdominal pain, Vomiting Genitourinary: Reports: - - Vaginal discharge and itching Musculoskeletal: Denies: Neck pain, Back pain Skin: Reports: - - Itching diffusely on her skin. Neurological: Denies: Headache Hematologic: Denies: Easy bruising, Easy bleeding Allergy: Denies: Uticaria, Swelling of the mouth Physical Exam Vital Signs/Narrative: Vital Signs Temp Pulse Resp BP Pulse Ox 12/27/19 01:18 97.3 F L 101 H 18 117/80 99 Inital Vital Signs reviewed: Yes General: Well nourished, Well developed Head: Normocephalic ENT: Moist mucous membranes Neck: Supple Cardiovascular: Regular rate, Regular rhythm Respiratory: No distress, CTA bilaterally Abdomen: Soft, Nontender : - - Scant white discharge consistent with yeast infection noted on exam. She does have topical cream in place. No other lesions appreciated. Skin: - - At this time I do not see focal skin lesions consistent with scabies, however she does have diffuse itching. Neurological: Alert, Oriented x3 Psychological: Normal affect Diagnostic/Tx/Re-eval - Medical Decision Making Patient be given a dose of Diflucan here. She will be given prescription for Flagyl as well as permethrin cream similar to her last similar presentation. Although I do not see focal signs of scabies at this time she does have diffuse itching and she thinks it is going to lead into a full-fledged infestation like previous. ED Disposition - Plan for ED Patient: Disposition: Home or Assisted Living Diagnosis: Yeast vaginitis, Pruritus Instructions: ED [facility]OMAS VAGINITIS Prescriptions: metroNIDAZOLE [Flagyl] 500 mg PO BID #14 tab Transmission Status: Pending to [facility] Permethrin 5% [Permethrin] 60 gm TP X1 #1 tube Transmission Status: Pending to [facility] Referrals: Kirby Logan MD [STAFF PHYSICIAN] - As Needed
[2019-12-27] MEDS: Fluconazole 100 MG Tablet 200 MG PO (02:03)
== END 2019-12-27 02:04 | disposition home or self-care (01) ==
PROVIDERS: Emergency Provider Emergency Medicine
DX: B37.3 Candidiasis of vulva and vagina (principal); L29.9 Pruritus, unspecified; F90.9 Attention-deficit hyperactivity disorder, unspecified type; F17.200 Nicotine dependence, unspecified, uncomplicated
CPT/HCPCS: 99282

== ENCOUNTER 2020-04-12 10:23 | Emergency (ER) | payer MEDICAID, SELFPAY ==
[2020-04-12 10:24] VITALS: BP 115/101; PULSE 113; RESP 20; TEMP 36.6; O2SAT 98; BMI 28.0
--- NOTE | 2020-04-12 10:27 | ED.VIS.GEN ---
History of Present Illness Chief Complaint: Overdose Informant: Patient Narrative: 25-year-old female presenting with nausea. She states she has been clean of methamphetamine and fentanyl after detoxing in November but over the last weekend starting on Sunday she has been both snorting and shooting up meth. She inadvertently drank some hydrogen peroxide thinking it was her water bottle and stated that she threw up violently believes she threw it all up. Patient does not want detox. She is already in an outpatient program and in a clean house. - Past Medical History (1) Anxiety and depression Status: Chronic Past Medical History - Allergies and Home Meds Allergies/Adverse Reactions: Allergies No Known Allergies Allergy (Verified 04/12/20 10:28) Primary Care Physician: Care Physician,No Primary [Primary Care Provider] - Prior records reviewed: Yes Past Medical History: - - Reviewed in problem list Surgical History: no surgical history Lives: - - Sober house Smoking Status: Current every day smoker Drugs: - - Methamphetamine Review of Systems General: Denies: Chills, Fever, Sweats Eyes: Denies: Visual changes - bilaterally, Diplopia ENT: Denies: Rhinorrhea, Sore throat Respiratory: Denies: Dyspnea, Cough, Dyspnea on exertion Gastrointestinal: Denies: Abdominal pain, Nausea, Vomiting, Diarrhea, Melena, Hematochezia Genitourinary: Denies: Dysuria, Hematuria, Frequency Musculoskeletal: Denies: Back pain, Extremity Pain Skin: Denies: Rash, Wounds Neurological: Denies: Headache, Weakness, Numbness Psych: Reports: Anxiety. Denies: Suicidal thoughts, Suicidal ideations Physical Exam Inital Vital Signs reviewed: Yes General: Well nourished, No Acute Distress Head: Normocephalic, Atraumatic Eyes: Perrl, EOMI ENT: Moist mucous membranes, No rhinorrhea Cardiovascular: Regular rate, Regular rhythm Respiratory: No distress, CTA bilaterally Extremities: Nontender, No edema Skin: Normal color, No rash. Negative for: Cyanosis, Diaphoresis Neurological: Alert, Oriented x3, Cranial nerves II-XII grossly intact Psychological: - - Anxious. Negative for: Depressed, Tearful Diagnostic/Tx/Re-eval - Medical Decision Making Patient presents after ingestion of hydrogen peroxide. She states she is sure she vomited all up. She has some residual nausea. Vital signs are stable and she is afebrile. Patient is alert and oriented x3. She states that she just wants to go home and sleep it off. I feel that this is reasonable given the patient is feeling well. Patient does not want detox methamphetamine or fentanyl. She states she has outpatient treatment that she can follow-up with. Patient stable for discharge at this time. Impression: 1. Methamphetamine abuse 2. Nausea/vomiting ED Disposition - Plan for ED Patient: Disposition: Home or Assisted Living Instructions: ED Drug Abuse Prescriptions: Ondansetron [Zofran Odt] 4 mg PO Q8H PRN PRN #14 tab PRN Reason: Nausea Transmission Status: Received by [id number] Referrals: Care Physician,No Primary [Primary Care Provider] -
[2020-04-12] MEDS: Ondansetron ODT 4 MG Tablet PO (11:00)
== END 2020-04-12 11:08 | disposition home or self-care (01) ==
LOC: ED 11:04
PROVIDERS: Emergency Provider Student in an Organized Health Care Education/Training Program
DX: F15.10 Other stimulant abuse, uncomplicated (principal); R11.2 Nausea with vomiting, unspecified; F17.200 Nicotine dependence, unspecified, uncomplicated
CPT/HCPCS: 99283

== ENCOUNTER 2020-12-06 12:17 | Emergency (ER) | payer MEDICAID, SELFPAY ==
[2020-12-06 12:17] VITALS: BP 132/83; PULSE 76; RESP 18; TEMP 36.4; O2SAT 100; BMI 36.1
--- NOTE | 2020-12-06 12:25 | RAD_ITS ---
INDICATION: BACK PAIN EXAMINATION/TECHNIQUE: X-RAY - XR Spine Lumbar 2 or 3 Views COMPARISON: None. FINDINGS: VERTEBRAE: Preserved vertebral body height. No fracture. No spondylolisthesis. Preservation of the normal lumbar lordosis. No significant facet arthropathy. DISCS: Disc spaces are maintained. INCLUDED ABDOMEN: Included bowel gas pattern is non-obstructive. RAD/Lumbar Spine 2 or 3 Views IMPRESSION: No evidence of lumbar spinal fracture or spondylolisthesis. Electronically Signed: Lupillo Gamez MD at 13:01 EDT Tel , Service support ,
--- NOTE | 2020-12-06 12:40 | EDS_ITS ---
HPI History of Present Illness Chief Complaint: Back Detail of Chief Complaint: Back pain status post fall Informant: patient Onset/Context/Timing Onset: Yesterday Context: Sudden Onset Injury: fall (From standing position onto her right side) Timing: Continuous Quality: Dull and Aching Location: Lumbar and Left Leg Current Severity: Mild Maximum Severity: Moderate Worsened by: improves with Movement, Bending and Lifting Relieved by: Nothing Associated Symptoms Associated Symptoms: Radiation to Right Leg (Posterior to the mid left thigh) and - (Denies saddle paresthesia or anesthesia. Denies foot drop.); Negative for Numbness, Tingling, Abdominal Pain, Dysuria, Unable to Ambulate, Unable to Transfer, Urinary Retention, Urinary Incontinence, Constipation and Fecal Incontinence Narrative Narrative: Patient is a 25-year-old woman with history of scoliosis who presents with back pain after fall. She informed the nurse that she does not want any opiate analgesics. She denies bowel bladder dysfunction. She denies saddle paresthesia or anesthesia. She does report pain going down her left leg as previously documented. She denies buckling of her knees. She states her foot is dragging. She has no other complaints or symptoms. Prior similar symptoms: No Recent Illness/Hospitalization: No [facility] Medical History ADHD Anxiety Depression Hepatitis C History of chlamydia History of gonorrhea Rubella non-immune status, antepartum Home Medications NK 12/06/20 [History Last Taken Unknown] Allergy/AdvReac Type Severity Reaction Status Date / Time No Known Allergies Allergy Verified 12/06/20 12:17 Social History (Updated 12/06/20 @ 12:[address] Jimmy Echevarria MD) household members: none Smoking Status: Current every day smoker tobacco type: cigarettes alcohol intake: former substance use type: former substance user ROS ROS ED Constitutional Constitutional ED: Denies chills, fever(s), subjective or sweats Cardiovascular Cardiovascular: Denies chest pain or palpitations Respiratory/Chest Respiratory/Chest: Denies dyspnea or dyspnea on exertion Gastrointestinal Gastrointestinal: Denies abdominal pain, constipation, diarrhea, melena, nausea or vomiting Genitourinary Genitourinary ED: Denies dysuria, hematuria or urinary frequency Musculoskeletal Musculoskeletal: Reports back pain; Denies arthralgias, myalgias or neck pain Integumentary Denies Abrasions or rash Neurologic Neurologic: Denies paresthesias or weakness Hematologic/Lymphatic Hematologic/Lymphatic: Denies easy bleeding or easy bruising EXAM Physical Exam Const Vital Signs: 12/06/20 12:17 Temperature 97.5 F L Temperature Source Temporal Pulse Rate 76 Respiratory Rate 18 Blood Pressure 132/83 H Blood Pressure Mean 99 Pulse Ox 100 Oxygen Delivery Method Room Air Positive well nourished, well developed and obese General Appearance ED: well developed Nutritional Appearance: obese HEENT Reports moist mucous membranes HEENT Narrative: Head is atraumatic normocephalic. Ears are normal. Nares patent. Eyes PERRL and EOMs intact bilaterally General Eye ED: Negative for pale conjunctiva or scleral icterus Neck no lymphadenopathy, supple and no JVD Resp normal respiratory effort and clear to auscultation bilaterally Cardio regular rate, regular rhythm, S1 normal heart sound, S2 normal heart sound and no murmurs GI normal to inspection, nondistended, normoactive bowel sounds, soft to palpation and non-tender GI Narrative: There is no pain patient of the pelvis. Back/Spine normal to inspection; Negative for no thoracic nor lumbar tenderness General Back: Negative for CVA tenderness or scar(s) Cervical Spine: Negative for cervical spine tenderness and Negative for paracervical muscle tenderness Thoracic Spine / Upper Back: paraspinal muscle tenderness Lumbar Spine / Lower Back: straight leg raise negative bilaterally Extremity normal to inspection and no clubbing, cyanosis or edema General Extremety ED: Negative for edema or tenderness General Extremity: Negative for edema Neuro oriented x3 Neuro Narrative: There is no clonus. Gait was observed. She does not have a foot drop. She able to walk on her heels and toes. She is able to perform a 1 legged squat. She has normal sensation over L3, L4 and L5 dermatome. Sensorium / Orientation: alert Deep Tendon Reflexes: Rt Patellar (L4): 1+, Lt Patellar (L4): 1+, Rt Ankle (S1): 1+ and Lt Ankle (S1): 1+ Deep Tendon Reflexes Back: Rt Patellar (L4): 1+, Lt Patellar (L4): 1+, Rt Ankle (S1): 1+ and Lt Ankle (S1): 1+ Plantar Reflex: Downgoing: bilateral Psych mental status grossly normal Skin no rashes or lesions noted and no wounds MDM MDM MDM Narrative Medical decision making narrative: With history of trauma x-ray was ordered per nurse protocol. Three-view x-ray of the LS-spine was interpreted by me as negative for fracture, subluxation or dislocation. There is no degenerative changes noted. Discharge Plan Triage Chief Complaint: Back ED Provider: Jimmy Echevarria Dx/Rx/DC Orders Clinical Impression: Contusion of lower back, Strain of muscle, fascia and tendon of lower back, initial encounter Instructions: Self-Care for Strains and Sprains, ED Back Contusion Prescriptions: No Action NK RF: 0 Primary Care Provider: Care Physician,No Primary Referrals: Care Physician,No Primary [Primary Care Provider] - Doctor,Your [STAFF PHYSICIAN] - As Needed Activity Restrictions/Additional Instructions: 1. Apply ice 6-8 times a day. Application for 30 minutes 2. Take 4 ibuprofen tablets every 8 hours or 2 Aleve tablets every 12 hours for the next 3 to 5 days. 3. You may hurt for several more days Disposition Disposition: Home, Self Care
== END 2020-12-06 13:13 | disposition home or self-care (01) ==
PROVIDERS: Emergency Provider Emergency Medicine
DX: S30.0XXA Contusion of lower back and pelvis, initial encounter (principal); S39.012A Strain of muscle, fascia and tendon of lower back, initial encounter; W19.XXXA Unspecified fall, initial encounter; Y93.9 Activity, unspecified; Y92.9 Unspecified place or not applicable; M41.9 Scoliosis, unspecified; F90.9 Attention-deficit hyperactivity disorder, unspecified type; Z86.19 Personal history of other infectious and parasitic diseases; F17.210 Nicotine dependence, cigarettes, uncomplicated
CPT/HCPCS: 72100; 99282

== ENCOUNTER 2021-01-21 08:08 | Emergency (ER) | payer MEDICAID, SELFPAY ==
[2021-01-21 08:10] VITALS: BP 116/77; PULSE 75; RESP 14; TEMP 36.9; O2SAT 96; BMI 36.8
--- NOTE | 2021-01-21 08:47 | ED.RN ---
Pressure when urinating.
--- NOTE | 2021-01-21 08:58 | CT_ITS ---
STUDY: CT ABDOMEN AND PELVIS WITHOUT CONTRAST REASON FOR EXAM: Female, 25 years old. RLQ Pain RADIATION DOSAGE (If Supplied By Facility): CTDIvol = ( 14.22 ) mGy, DLP = ( 803.21 ) mGycm TECHNIQUE: Transaxial images were obtained from the dome of the diaphragm to the symphysis pubis without oral contrast, and without intravenous contrast. Sagittal and coronal images were reconstructed. Individualized dose optimization techniques were used for this CT. COMPARISON: None. FINDINGS: The visualized lung bases are unremarkable. The visualized portions of the heart are within normal limits. Normal liver. Normal gallbladder and extrahepatic biliary system. Normal spleen. Normal pancreas. Normal bilateral adrenal glands. Normal right kidney. Normal left kidney. There is a small hiatal hernia. Normal small intestine. Normal colon. The appendix is visualized and appears normal. Small lymph nodes are seen within the mesentery in the right lower quadrant suggestive of mesenteric adenitis. Normal abdominal aorta. Normal inferior vena cava. Normal retroperitoneum. Normal urinary bladder. Normal abdominal wall. Normal osseous structures. CT/Abdomen/Pelvis without Cont IMPRESSION: Findings suggestive of mesenteric adenitis. Small hiatal hernia. Electronically Signed: Ludwin Lincoln MD at 10:14 EDT , Service support ,
--- NOTE | 2021-01-21 08:58 | ED.VIS.GI ---
HPI HPI - GI History of Present Illness Chief Complaint: Abd Pain Informant: patient Abdominal Pain/Flank Pain Onset: Yesterday Context: Gradual Onset Timing: Continuous (Not colicky) Quality: Aching Location: RLQ Current Severity: Moderate Maximum Severity: Moderate Worsened by: Car ride Relieved by: Nothing Nausea/Vomiting/Emesis GI Symptom: Positive for Nausea; Negative for Vomiting Diarrhea/Melena/Hematochezia GI Symptom: Negative for Diarrhea, Melena and Hematochezia Associated Symptoms Associated Symptoms: Positive for Frequency and Urgency (Along with pelvic pressure); Negative for Dysuria and Hematuria Narrative Narrative: Gradual onset of of right lower quadrant pain that has become gradually worse. Not colicky. Radiates to the flank a little and into the groin but not into her back. Has had some urinary symptoms the entire time as well, maybe started a day before, some pressure, urgency, frequency but no dysuria. No fevers or chills. Nausea and anorexia this morning but no vomiting. No history of any abdominal surgeries. [facility] Medical History ADHD Anxiety Depression Hepatitis C History of chlamydia History of gonorrhea Rubella non-immune status, antepartum Home Medications NK 12/06/20 [History Last Taken Unknown] naproxen 500 mg PO BID PRN #20 tab 01/21/21 [Rx Last Taken Unknown] ondansetron 8 mg PO Q8H PRN PRN #20 tab 01/21/21 [Rx Last Taken Unknown] Allergy/AdvReac Type Severity Reaction Status Date / Time No Known Allergies Allergy Verified 01/21/21 08:10 Social History household members: none Smoking Status: Current every day smoker tobacco type: cigarettes alcohol intake: former substance use type: former substance user ROS ROS ED Constitutional Constitutional ED: Reports anorexia and malaise; Denies chills or fever(s) Eyes Eyes: Denies change in vision or diplopia ENT ENT ED: Denies rhinorrhea or sore throat Cardiovascular Cardiovascular: Denies chest pain or palpitations Respiratory/Chest Respiratory/Chest: Denies cough or dyspnea Gastrointestinal Gastrointestinal: Reports as per HPI, abdominal pain and nausea; Denies diarrhea or vomiting Genitourinary Genitourinary ED: Reports urinary frequency; Denies dysuria or hematuria Musculoskeletal Musculoskeletal: Denies back pain or neck pain Integumentary Denies abscess or rash Neurologic Neurologic: Denies headache(s), paresthesias or weakness Psychiatric Psychiatric: Denies anxiety or suicidal thoughts EXAM Physical Exam Const Vital Signs: 01/21/21 08:10 01/21/21 10:04 Temperature 98.4 F Temperature Source Temporal Pulse Rate 75 51 L Respiratory Rate 14 16 Blood Pressure 116/77 113/63 Blood Pressure Mean 90 79 Pulse Ox 96 98 Oxygen Delivery Method Room Air Room Air Positive well nourished and well developed General Appearance ED: well developed and NAD HEENT Reports moist mucous membranes normocephalic and atraumatic Eyes PERRL and EOMs intact bilaterally Neck full ROM and supple Resp normal respiratory effort and clear to auscultation bilaterally Cardio regular rate, regular rhythm and no murmurs GI non-distended Auscultation: normoactive bowel sounds Palpation: soft and tender RLQ (Diffusely. No other areas of abdominal tenderness.), McBurney's point, Obturator sign (Negative psoas and Sanchez's signs) and Rovsing's sign Back/Spine no CVA tenderness General Back: other FROM Extremity normal to inspection General Extremety ED: Negative for edema, pulses abnormal or tenderness General Extremity: Negative for edema or pulses abnormal Neuro oriented x3, CN's II-XII intact bilaterally and no sensory deficits noted Sensorium / Orientation: awake and alert Motor Exam: strength 5/5 throughout Skin no rashes or lesions noted and no wounds MDM MDM MDM Narrative Medical decision making narrative: Work-up shows lack of a leukocytosis, but because of the history and exam CT was obtained anyway to rule out appendicitis, it shows mesenteric adenitis is likely, a common mimic. According to the radiologist interpretation, the appendix is visualized and appears normal. At this time supportive care advised, I will prescribe the patient Naprosyn and Zofran and advised close outpatient follow-up if she is not improving after 4 to 5 days. We discussed reasons to return she is comfortable with that plan. Lab Data Attestation: I reviewed the patient's lab results. Labs: Laboratory Results - last 24 hr 01/21/21 01/21/21 01/21/21 08:40 08:40 09:00 WBC 7.0 RBC 4.67 Hgb 14.3 Hct 41.2 MCV 88.2 MCH 30.6 MCHC 34.7 RDW Std Deviation 39.9 RDW Coeff of He 12.4 Plt Count 267 MPV 9.9 Immature Gran % (Auto) 0.300 Neut % (Auto) 61.0 Lymph % (Auto) 29.5 [place] % (Auto) 7.9 Eos % (Auto) 0.6 Baso % (Auto) 0.7 Absolute Neuts (auto) 4.3 Absolute Lymphs (auto) 2.05 Nucleated RBC % 0 Sodium 139 Potassium 4.0 Chloride 111 H Carbon Dioxide 24.0 Anion Gap 4 L BUN 17 Creatinine 0.86 Estim Creat Clear Calc 93.61 Est GFR (MDRD) Af Amer 103 Est GFR (MDRD) Non-Af 85 BUN/Creatinine Ratio 19.8 Glucose 105 Calcium 8.7 Urine Color Yellow Urine Clarity Sl. Cloudy Urine pH 6.0 Ur Specific [place] 1.015 Urine Protein Negative Urine Glucose (UA) Normal Urine Ketones Negative Urine Occult Blood Negative Urine Nitrite Negative Urine Bilirubin Negative Urine Urobilinogen Normal Ur Leukocyte Esterase Negative Urine RBC 0 SEEN Urine WBC 0-5 SEEN Ur Squamous Epith Cells 0-5 SEEN Urine Bacteria RARE Urine Mucus 0 SEEN Urine Test Negative Radiography Diagnostic Testing: Clinical Impression(s) from Imaging Studies Abdomen/Pelvis CT 01/21/21 08:58 IMPRESSION: Findings suggestive of mesenteric adenitis. Small hiatal hernia. Electronically Signed: Ludwin Lincoln MD at 10:14 EDT , Service support , Discharge Plan Triage Chief Complaint: Abd Pain ED Provider: Brigido Flores Dx/Rx/DC Orders Clinical Impression: Acute mesenteric adenitis Instructions: ED Adenitis, Mesenteric Prescriptions: New ondansetron [ondansetron] 4 MG tablet 8 mg PO Q8H PRN PRN (Reason: Nausea) Qty: 20 RF: 0 naproxen 500 MG tablet 500 mg PO BID PRN Qty: 20 RF: 0 No Action NK RF: 0 Primary Care Provider: Care Physician,No Primary Referrals: Care Physician,No Primary [Primary Care Provider] - Doctor,Your [STAFF PHYSICIAN] - 5-7 Days (if not improving) Disposition Disposition: Home, Self Care
[2021-01-21] MEDS: Ketorolac 15 MG/ML Vial IV (09:05)
[2021-01-21] MEDS: Ondansetron 4 MG/2 ML Vial IV (09:05)
[2021-01-21 09:08] LABS: Absolute Lymphocyte Count 2.05 X10^3/uL (0.83-4.51); Absolute Neutrophil Count 4.3 X10^3/uL (2.0-7.7); Basophil# 0.05 X10^3/uL; Basophil% 0.7 % (0-1); Eosinophil# 0.04 X10^3/uL; Eosinophils% 0.6 % (0-5); Hematocrit 41.2 % (37-47); Hemoglobin 14.3 g/dL (12.0-15.0); Lymphocyte # 2.05 X10^3/ul (0.83-4.51); Lymphocyte % 29.5 % (19-41); Mean Corp Hgb Conc 34.7 g/dL (32-36); Mean Corpuscular Hgb 30.6 pg (27.0-32.0); Mean Corpuscular Volume 88.2 fL (81-99); Mean Platelet Vol. 9.9 fl (6.2-12.0); Monocyte# 0.55 X10^3/uL; Monocyte% 7.9 % (0-10); NRBC Flagged by Analyzer 0 % (0-5); Neutrophil # 4.25 X10^3/uL (2.7-7.7); Platelet Count 267 K/mm3 (150-450); RBC Distribution Width CV 12.4 % (11.6-14.6); RBC Distribution Width SD 39.9 fl (35.1-43.9); Red Blood Count 4.67 M/mm3 (4.2-5.4)
[2021-01-21 09:08] LABS: Mucous, Urine 0 SEEN /hpf (<or=2+); Red Blood Cells-Urine 0 SEEN /hpf (0-5)
[2021-01-21] MEDS: 0.9% Normal Saline 1,000 ML 125 ML IV (09:08)
[2021-01-21 09:14] LABS: Internal QC Validated? YES +Cl - CLEAR BKGD; Pregnancy, Urine Negative Negative
[2021-01-21 09:15] LABS: Color, Urine Yellow (Yellow); Glucose, Dipstick Normal (Normal); Ketone-Dipstick Negative (Negative); Leukocyte Esterase-Dipstick Negative /ul (Negative); Nitrite-Dipstick Negative (Negative); Occult Blood-Urine Negative /ul (Negative); Protein-Dipstick Negative (Negative); Specific Gravity, Urine 1.015 (1.002-1.030); Urine Bilirubin Dipstick Negative (Negative); Urine Clarity Sl. Cloudy (Clear); Urine Urobilinogen Normal (Normal)
[2021-01-21 09:16] LABS: Anion Gap 4 (5-15); BUN 17 mg/dL (7-18); BUN/Creat Ratio 19.8 RATIO (10-20); Calcium,Total 8.7 mg/dL (8.5-10.1); Chloride 111 mmol/L (98-107); Creatinine, Serum 0.86 mg/dL (0.55-1.02); EST Glomerular Filtration Rate 85 mL/min (>60); Est Glom Filt Rate - Afr Amer 103 mL/min (>60); Estimated Creatinine Clearance 93.61 ml/min; Glucose 105 mg/dL (74-106); Sodium Level 139 mmol/L (136-145)
[2021-01-21 09:21] LABS: Bacteria RARE /hpf (None Seen); Squamous Epithelial Cells - UA 0-5 SEEN /hpf (5-10); White Blood Cells 0-5 SEEN /hpf (0-5)
[2021-01-21 10:04] VITALS: BP 113/63; PULSE 51; RESP 16; O2SAT 98
[2021-01-21 11:01] VITALS: BP 108/59; PULSE 61; RESP 14; O2SAT 98
== END 2021-01-21 11:02 | disposition home or self-care (01) ==
PROVIDERS: Emergency Provider Emergency Medicine
DX: I88.0 Nonspecific mesenteric lymphadenitis (principal); F32.A Depression, unspecified; F41.9 Anxiety disorder, unspecified; F90.9 Attention-deficit hyperactivity disorder, unspecified type; Z86.19 Personal history of other infectious and parasitic diseases; Z79.899 Other long term (current) drug therapy; F17.210 Nicotine dependence, cigarettes, uncomplicated
CPT/HCPCS: 74176; 80048; 81001; 81025; 85025; 96361; 96374; 96375; 99284; J7030; A4216; J2405

== ENCOUNTER 2021-05-09 18:21 | Outpatient (CLI) | payer MEDICAID, SELFPAY | END 2021-05-09 23:59 | disposition short-term general hospital (02) | PROVIDERS: Referring Provider Family Medicine; Visit Provider Family Medicine | DX: R05.9 Cough, unspecified (principal) | CPT/HCPCS: 87635; U0003; U0005 ==

== ENCOUNTER 2021-05-11 15:24 | Outpatient (CLI) | payer MEDICAID, SELFPAY ==
--- NOTE | 2021-05-11 15:28 | RAD_ITS ---
STUDY: X-RAY LEFT FOOT, FIRST TOE REASON FOR EXAM: Female, 26 years old. Injury one year ago with trauma again one week ago. Pain. TECHNIQUE: History view(s) of the toe were obtained. COMPARISON: None. FINDINGS: Normal visualized metatarsus. There is arthrosis of the metatarsophalangeal (M.T.P.) joint. Normal interphalangeal joints. Normal phalanges and interphalangeal joints. The soft tissue structures are unremarkable. 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 The there is no evidence of acute injury. Electronically Signed: Eriberto Logan DO at 16:55 EST ,
== END 2021-05-11 23:59 | disposition short-term general hospital (02) ==
PROVIDERS: PCP Family Medicine; Referring Provider Family Medicine; Visit Provider Family Medicine
DX: M79.675 Pain in left toe(s) (principal)
CPT/HCPCS: 73660

== ENCOUNTER 2021-07-25 21:55 | Emergency (ER) | payer MEDICAID, SELFPAY ==
[2021-07-25 21:55] VITALS: BP 124/76; PULSE 67; RESP 18; TEMP 36.6; O2SAT 100; BMI 34.9
--- NOTE | 2021-07-25 22:25 | ED.VIS.GI ---
HPI HPI - GI History of Present Illness Chief Complaint: Abd Pain Informant: patient Abdominal Pain/Flank Pain Onset: Today Context: Gradual Onset Timing: Continuous Quality: Aching Location: Right Flank Current Severity: Mild Maximum Severity: Mild Nausea/Vomiting/Emesis GI Symptom: Negative for Nausea and Vomiting Diarrhea/Melena/Hematochezia GI Symptom: Negative for Diarrhea and Melena Associated Symptoms Associated Symptoms: Negative for Dysuria, Frequency and Hematuria Narrative Narrative: 26-year-old female history of ADHD, anxiety, hepatitis C and substance abuse. Prior CAT scan January 2021 showed a hiatal hernia but no other acute abnormalities. Complaining of right-sided abdominal pain since this morning. States she has had bowel movements. Has been passing gas. She denies any history of this. She denies any dysuria nor fever. No trauma. No hematuria. She denies any weight change. Patient has been before she is G2, P2 Ab0. Her last menstrual period was about 2 weeks ago. She denies any discharge. No back pain. Denies any recent illness other than a URI 1 week ago. Denies any prior abdominal or pelvic surgeries. Prior similar symptoms: No Recent Illness/Hospitalization: No PFSH PFSH Medical History ADHD Anxiety Depression Hepatitis C History of chlamydia History of gonorrhea Rubella non-immune status, antepartum Home Medications NK 12/06/20 [History Last Taken Unknown] naproxen 500 mg PO BID PRN #20 tab 01/21/21 [Rx Last Taken Unknown] ondansetron 8 mg PO Q8H PRN PRN #20 tab 01/21/21 [Rx Last Taken Unknown] Allergy/AdvReac Type Severity Reaction Status Date / Time No Known Allergies Allergy Verified 01/21/21 08:10 Social History household members: none Smoking Status: Current every day smoker tobacco type: cigarettes alcohol intake: former substance use type: former substance user ROS ROS ED ROS Narrative Right-sided abdominal pain. Review of Systems ROS Unobtainable: Denies due to encephalopathy Constitutional Constitutional ED: Denies fever(s) ENT ENT ED: Denies ear pain Cardiovascular Cardiovascular: Denies chest pain Respiratory/Chest Respiratory/Chest: Denies dyspnea Gastrointestinal Gastrointestinal: Reports abdominal pain; Denies constipation, diarrhea, melena, nausea or vomiting Genitourinary Genitourinary ED: Denies dysuria, hematuria or urinary frequency Musculoskeletal Musculoskeletal: Denies myalgias Integumentary Denies rash Neurologic Neurologic: Denies headache(s) Psychiatric Psychiatric: Denies depression Endocrine Endocrinology: Denies polyuria Hematologic/Lymphatic Hematologic/Lymphatic: Denies easy bruising Allergic/Immunologic Allergic/Immunologic ED: Denies urticaria EXAM Physical Exam Narrative Exam Narrative: 26-year-old female no acute distress. Vital signs stable afebrile. HEENT exam unremarkable. Neck nontender. Lungs are clear. Heart regular rhythm no murmur. Abdomen soft nondistended normal bowel sounds no peritoneal signs. No significant right upper or lower quadrant tenderness. No Sanchez sign. No McBurney's point tenderness. No hernia or mass. No signs of obstruction. Otherwise exam unremarkable. Back nontender. Const Vital Signs: 07/25/21 21:55 07/26/21 00:16 Temperature 98 F Temperature Source Temporal Pulse Rate 67 Respiratory Rate 18 17 Blood Pressure 124/76 H Blood Pressure Mean 92 Pulse Ox 100 99 Oxygen Delivery Method Room Air Room Air Positive well nourished, well developed and obese; Negative for cachectic, contractures or unkempt General Appearance ED: well developed and NAD; Negative for unkempt, cachectic, contractures or pallor Nutritional Appearance: obese; Negative for cachectic HEENT Reports moist mucous membranes normocephalic and atraumatic; Negative for trauma or tenderness Eyes PERRL and EOMs intact bilaterally General Eye ED: Negative for pale conjunctiva or scleral icterus Neck no lymphadenopathy, supple and no JVD General: Negative for tenderness Resp normal respiratory effort and clear to auscultation bilaterally Auscultation: Negative for rales, rhonchi or wheezes Cardio regular rate, regular rhythm, S1 normal heart sound, S2 normal heart sound and no murmurs GI non-tender, non-distended and no masses Inspection: Negative for abdominal distention Auscultation: normoactive bowel sounds; Negative for hyperactive bowel sounds or hypoactive bowel sounds Palpation: soft; Negative for tender, guarding, rigid, hepatomegaly, splenomegaly, mass, pulsatile mass or rebound tenderness present Back/Spine no CVA tenderness General Back: Negative for CVA tenderness Cervical Spine: Negative for cervical spine tenderness Thoracic Spine / Upper Back: Negative for thoracic spinal tenderness Extremity full ROM General Extremety ED: Negative for edema or tenderness General Extremity: Negative for edema Neuro CN's II-XII intact bilaterally and moves all extremities Sensorium / Orientation: alert, oriented to person, oriented to place and oriented to time; Negative for orientation impaired, confused, lethargic or stuporous Motor Exam: strength 5/5 throughout Psych mental status grossly normal and thought process normal Appearance: Negative for unkempt Attitude: No agitated Mood & Affect: Negative for depressed, anxious or tearful Skin no wounds General Skin Exam: Negative for jaundice or pallor Lesions: no lesions Rashes: no rashes MDM MDM MDM Narrative Medical decision making narrative: 26-year-old female with right-sided abdominal pain. Benign exam. Afebrile. Clinically this does not appear to be gallbladder or appendicitis. Should undergo labs. She did not want a thing for pain or nausea at this time. She had a recent CAT scan several months ago which was unremarkable. I will hold off on imaging till I get the lab results. Repeat exam patient is doing well. Abdomen is benign at 12:30 AM. She will be discharged to home. Lab Data Attestation: I reviewed the patient's lab results. Lab results narrative: CBC normal white count 9 H&H of 14 and 42. Electrolytes unremarkable gap of 6 normal BUN and creatinine. Normal liver enzymes. Lipase was only 36. Urinalysis was negative. Urine test negative. Labs: Laboratory Results - last 24 hr 07/25/21 07/25/21 07/25/21 22:20 22:20 22:20 WBC 9.2 RBC 4.75 Hgb 14.5 Hct 42.0 MCV 88.4 MCH 30.5 MCHC 34.5 RDW Std Deviation 37.5 RDW Coeff of He 11.8 Plt Count 223 MPV 10.4 Immature Gran % (Auto) 0.300 Neut % (Auto) 52.2 Lymph % (Auto) 38.2 [place] % (Auto) 7.6 Eos % (Auto) 1.0 Baso % (Auto) 0.7 Absolute Neuts (auto) 4.8 Absolute Lymphs (auto) 3.53 Nucleated RBC % 0 Differential Comment SCANNED Sodium 137 Potassium 3.9 Chloride 109 H Carbon Dioxide 22.0 Anion Gap 6 BUN 13 Creatinine 0.72 Estim Creat Clear Calc 110.84 Est GFR (MDRD) Af Amer 125 Est GFR (MDRD) Non-Af 104 BUN/Creatinine Ratio 18.0 Glucose 94 Calcium 8.8 Total Bilirubin 0.20 AST 23 ALT 27 Alkaline Phosphatase 96 Total Protein 7.0 Albumin 3.3 Globulin 3.7 Albumin/Globulin Ratio 0.9 Lipase 36 L Serum , Qual Urine Color Yellow Urine Clarity Clear Urine pH 6.0 Ur Specific Reagan 1.020 Urine Protein Negative Urine Glucose (UA) Normal Urine Ketones Negative Urine Occult Blood Negative Urine Nitrite Negative Urine Bilirubin Negative Urine Urobilinogen 1 H Ur Leukocyte Esterase Negative Urine RBC 0 SEEN Urine WBC 0 SEEN Ur Squamous Epith Cells 0-5 SEEN Urine Bacteria 0 SEEN Urine Mucus 0 SEEN Urine Test 07/25/21 07/25/21 22:24 22:48 WBC RBC Hgb Hct MCV MCH MCHC RDW Std Deviation RDW Coeff of He Plt Count MPV Immature Gran % (Auto) Neut % (Auto) Lymph % (Auto) [place] % (Auto) Eos % (Auto) Baso % (Auto) Absolute Neuts (auto) Absolute Lymphs (auto) Nucleated RBC % Differential Comment Sodium Potassium Chloride Carbon Dioxide Anion Gap BUN Creatinine Estim Creat Clear Calc Est GFR (MDRD) Af Amer Est GFR (MDRD) Non-Af BUN/Creatinine Ratio Glucose Calcium Total Bilirubin AST ALT Alkaline Phosphatase Total Protein Albumin Globulin Albumin/Globulin Ratio Lipase Serum , Qual Cancelled Urine Color Urine Clarity Urine pH Ur Specific Reagan Urine Protein Urine Glucose (UA) Urine Ketones Urine Occult Blood Urine Nitrite Urine Bilirubin Urine Urobilinogen Ur Leukocyte Esterase Urine RBC Urine WBC Ur Squamous Epith Cells Urine Bacteria Urine Mucus Urine Test Negative Discharge Plan Triage Chief Complaint: Abd Pain ED Provider: Eulogio Baez Dx/Rx/DC Orders Clinical Impression: Abdominal pain, Anxiety and depression Instructions: Abdominal Pain Prescriptions: No Action NK RF: 0 ondansetron [ondansetron] 4 MG tablet 8 mg PO Q8H PRN PRN (Reason: Nausea) Qty: 20 RF: 0 naproxen 500 MG tablet 500 mg PO BID PRN Qty: 20 RF: 0 Primary Care Provider: Kirby Be Referrals: Kirby Be, DO [Primary Care Provider] - 3-5 Days if not improving Activity Restrictions/Additional Instructions: Plenty of fluids and rest. Follow-up with your doctor if not improving return if worse. All your lab work tonight was normal. Disposition Disposition: Home, Self Care
[2021-07-25 22:35] LABS: Bacteria 0 SEEN /hpf (None Seen); Mucous, Urine 0 SEEN /hpf (<or=2+); Red Blood Cells-Urine 0 SEEN /hpf (0-5); White Blood Cells 0 SEEN /hpf (0-5)
[2021-07-25 22:40] LABS: Absolute Lymphocyte Count 3.53 X10^3/uL (0.83-4.51); Absolute Neutrophil Count 4.8 X10^3/uL (2.0-7.7); Basophil# 0.06 X10^3/uL; Basophil% 0.7 % (0-1); Eosinophil# 0.09 X10^3/uL; Hemoglobin 14.5 g/dL (12.0-15.0); Lymphocyte # 3.53 X10^3/ul (0.83-4.51); Lymphocyte % 38.2 % (19-41); Mean Corp Hgb Conc 34.5 g/dL (32-36); Mean Corpuscular Hgb 30.5 pg (27.0-32.0); Mean Corpuscular Volume 88.4 fL (81-99); Mean Platelet Vol. 10.4 fl (6.2-12.0); Monocyte% 7.6 % (0-10); NRBC Flagged by Analyzer 0 % (0-5); Neutrophil # 4.82 X10^3/uL (2.7-7.7); Neutrophil % 52.2 % (47-70); POSITIVE COUNT YES; Platelet Count 223 K/mm3 (150-450); RBC Distribution Width CV 11.8 % (11.6-14.6); RBC Distribution Width SD 37.5 fl (35.1-43.9); Red Blood Count 4.75 M/mm3 (4.2-5.4); White Blood Count 9.2 K/mm3 (4.4-11.0)
[2021-07-25 22:41] LABS: Color, Urine Yellow (Yellow); Differential Indicated SCAN CRITERIA MET; Glucose, Dipstick Normal (Normal); Ketone-Dipstick Negative (Negative); Leukocyte Esterase-Dipstick Negative /ul (Negative); Nitrite-Dipstick Negative (Negative); Occult Blood-Urine Negative /ul (Negative); Protein-Dipstick Negative (Negative); Urine Bilirubin Dipstick Negative (Negative); Urine Clarity Clear (Clear); Urine Urobilinogen 1 mg/dl (Normal)
[2021-07-25 22:51] LABS: Squamous Epithelial Cells - UA 0-5 SEEN /hpf (5-10)
[2021-07-25 22:56] LABS: Internal QC Validated? YES +Cl - CLEAR BKGD; Pregnancy, Urine Negative Negative
[2021-07-25 22:59] LABS: ALB/GLOB Ratio 0.9 RATIO (0.9-2.4); AST(SGOT) 23 U/L (15-37); Alanine Aminotransfer ALT/SGPT 27 U/L (13-56); Albumin, Serum 3.3 g/dL (3.2-5.0); Alkaline Phosphatase 96 U/L (45-117); Anion Gap 6 (5-15); BUN 13 mg/dL (7-18); Calcium,Total 8.8 mg/dL (8.5-10.1); Chloride 109 mmol/L (98-107); Creatinine, Serum 0.72 mg/dL (0.55-1.02); EST Glomerular Filtration Rate 104 mL/min (>60); Est Glom Filt Rate - Afr Amer 125 mL/min (>60); Estimated Creatinine Clearance 110.84 ml/min; Globulin 3.7 g/dL (2.2-4.2); Glucose 94 mg/dL (74-106); Lipase 36 U/L (73-393); Potassium 3.9 mmol/L (3.5-5.1); Sodium Level 137 mmol/L (136-145)
[2021-07-25 23:08] LABS: Differential Comment SCANNED
[2021-07-25] MEDS: Ketorolac 60 MG/2 ML Vial IM (23:16)
[2021-07-26 00:16] VITALS: RESP 17; O2SAT 99
== END 2021-07-26 00:40 | disposition home or self-care (01) ==
PROVIDERS: Emergency Provider Emergency Medicine; PCP Family Medicine; Visit Provider Emergency Medicine
DX: R10.9 Unspecified abdominal pain (principal); F41.9 Anxiety disorder, unspecified; F32.A Depression, unspecified; F90.9 Attention-deficit hyperactivity disorder, unspecified type; B19.20 Unspecified viral hepatitis C without hepatic coma; F17.210 Nicotine dependence, cigarettes, uncomplicated; E66.9 Obesity, unspecified; Z68.34 Body mass index [BMI] 34.0-34.9, adult
CPT/HCPCS: 80053; 81001; 81025; 83690; 85025; 96372; 99282

== ENCOUNTER → 2021-09-29 | Outpatient (CLI) | payer MEDICAID, SELFPAY ==
[2021-09-29 17:38] LABS: Absolute Lymphocyte Count 4.35 X10^3/uL (0.83-4.51); Absolute Neutrophil Count 5.9 X10^3/uL (2.0-7.7); Basophil# 0.04 X10^3/uL; Basophil% 0.4 % (0-1); Eosinophil# 0.05 X10^3/uL; Eosinophils% 0.4 % (0-5); Hematocrit 41.5 % (37-47); Hemoglobin 14.3 g/dL (12.0-15.0); Lymphocyte # 4.35 X10^3/ul (0.83-4.51); Mean Corp Hgb Conc 34.5 g/dL (32-36); Mean Corpuscular Hgb 30.2 pg (27.0-32.0); Mean Corpuscular Volume 87.6 fL (81-99); Mean Platelet Vol. 10.1 fl (6.2-12.0); Monocyte# 0.79 X10^3/uL; Monocyte% 7.1 % (0-10); NRBC Flagged by Analyzer 0 % (0-5); Neutrophil # 5.88 X10^3/uL (2.7-7.7); Neutrophil % 52.7 % (47-70); Platelet Count 267 K/mm3 (150-450); RBC Distribution Width CV 11.9 % (11.6-14.6); RBC Distribution Width SD 38.2 fl (35.1-43.9); Red Blood Count 4.74 M/mm3 (4.2-5.4); White Blood Count 11.2 K/mm3 (4.4-11.0)
[2021-09-29 17:51] LABS: ALB/GLOB Ratio 1.2 RATIO (0.9-2.4); AST(SGOT) 12 U/L (15-37); Alanine Aminotransfer ALT/SGPT 28 U/L (13-56); Alkaline Phosphatase 81 U/L (45-117); Anion Gap 4 (5-15); BUN 18 mg/dL (7-18); BUN/Creat Ratio 20.2 RATIO (10-20); Chloride 106 mmol/L (98-107); Creatinine, Serum 0.89 mg/dL (0.55-1.02); EST Glomerular Filtration Rate 81 mL/min (>60); Est Glom Filt Rate - Afr Amer 98 mL/min (>60); Globulin 3.2 g/dL (2.2-4.2); Glucose 77 mg/dL (74-106); Potassium 3.4 mmol/L (3.5-5.1); Protein, Total 7.2 g/dL (6.4-8.2); Sodium Level 138 mmol/L (136-145)
== END | disposition home or self-care (01) ==
PROVIDERS: PCP Family Medicine; Referring Provider Family Medicine; Visit Provider Family Medicine
DX: Z01.818 Encounter for other preprocedural examination (principal)
CPT/HCPCS: 36415; 80053; 85025

== ENCOUNTER 2021-10-27 11:23 | Day surgery (SDC) | payer MEDICAID, SELFPAY ==
[2021-10-27 12:00] LABS: Internal QC Validated? YES +Cl - CLEAR BKGD; Pregnancy, Urine Negative Negative
[2021-10-27] MEDS: 0.9% Normal Saline 1,000 ML 100 ML IV (12:11)
[2021-10-27 12:12] VITALS: BP 114/74; PULSE 5; RESP 18; TEMP 36.8; O2SAT 99; BMI 35.2
[2021-10-27] MEDS: Cefazolin 2 GM in 0.9% Normal Saline 100 ML IV (13:28)
[2021-10-27] MEDS: Bupivacaine 0.25% 30 ML Vial (13:51)
--- NOTE | 2021-10-27 15:20 | RAD_ITS ---
STUDY: X-RAY - LEFT FOOT CLINICAL: Female, 26 years old. 1ST MPJ FUSION, FOOT TECHNIQUE: 2 view(s) of the foot. COMPARISON: None. FINDINGS: Intraoperative imaging provided for fusion of the first metatarsophalangeal joint. RAD/Foot 2 Views IMPRESSION: Intraoperative imaging provided for fusion of the first metatarsal phalangeal joint. Electronically Signed: Ludwin Lincoln MD at 10:00 EDT ,
--- NOTE | 2021-10-27 15:40 | OP.PCM_ITS ---
Problems Associated Problem List Diagnoses (1) Hallux rigidus, left foot: Operative Report Date of Procedure: 10/27/21 Surgeon: Rigoberto Krueger D.P.M. [employer] Generator Repairer: Merrill Gonzalez D.P.M. PGY 2 Preoperative diagnosis hallux rigidus left foot postoperative diagnosis same Procedure first MPJ fusion left foot Anesthesia General Hemostasis left ankle tourniquet well-padded Estimated blood loss minimal Materials 1 Arthrex max force plate with combination of locking and nonlocking screws x6. Injectables 10 cc quarter percent Marcaine plain preoperative nail block to left foot Indications: This 26-year-old female is dealt with left first metatarsal phalangeal joint pain upon radiographs there is significant degeneration of the articular cartilage upon physical examination there is noted be less than 20 degrees of dorsiflexion with pain throughout range of motion. Patient underwent a first MPJ injection which did alleviate her pain but only temporarily. Pain limits her day on a daily basis perform functional activity. Procedure in detail: Patient was brought back to the operating placed comfortably in supine position on the operating room table. All osseous prominences were offloaded to prevent any compression neuropraxia's. Well-padded ankle tourniquet was applied to left lower extremity and a hip bump was applied to left lower extremity knock out any excessive external rotation of the hip. Preoperatively before prep a Celaya block was performed using standard technique aseptically to the left first MPJ. Left lower extremity scrubbed prepped and draped using typical aseptic manner. Once cleared by anesthesia a dorsal medial linear incision was made along the extensor hallucis longus tendon with a 15 blade across the first metatarsal phalangeal joint through the level of epidermis dermis into subcutaneous tissue all bleeders neurovascular structures were identified cauterized neurovascular structures were identified and bluntly retracted and protected. Deep dissection was taken down the level of the first metatarsal phalangeal joint capsule using atraumatic technique. A dorsal capsulotomy was performed and the capsule was dissected off of the dorsal medial and lateral aspects of the first metatarsal phalangeal joint so adequate exposure of the first metatarsal head and proximal phalangeal base could be performed. The joints were then prepped using bone reamers are provided by the Arthrex set. This performed to the proximal phalangeal base and first metatarsal head all articular cartilage was denuded and removed the joint was then flushed with copious amounts normal sterile saline the first metatarsal head was shaped additionally with a sagittal saw to ensure adequate purchase of the first metatarsal phalangeal joint and that the first metatarsal plate could sit flush dorsally. Subchondral drilling was performed the first metatarsal head and proximal phalangeal base using a 2 oh drill bit. The first metatarsal phalangeal joint was reduced with regards to the sagittal transverse and frontal planes and pinned in this corrected position from a distal medial to proximal lateral manner. Was performed with a K wire. Intraoperative evaluation and fluoroscopic imaging was used to ensure adequate reduction and placement of the dorsal plate which was held temporarily with guidepins. A cortical screw was applied along the distal medial hole of the locking plate to allow for good plate bone apposition. This placed using tanisha dard technique along with 2 locking screws along the distal aspect of the plate the distal threaded guidepin was removed and attention was taken to the proximal aspect of the plate where the compression mechanism was used to toggle and compression across the first metatarsophalangeal joint once compression was adequate it was pinned in this compressed position using a beaded guidepin and was the proximal holes and then a nonlocking cortical screw was placed in the most distal proximal hole just proximal to the first metatarsal phalangeal joint using manufactures guideline a second none locking screw was placed in the middle hole along the proximal proximal aspect of the plate to allow for additional bone apposition this was drilled eccentrically as this is the eccentric compression hole. This was the screw was applied using manufactures guidelines. Finally a locking screw was placed on the most proximal hole in the plate using manufactures guidelines. Fluoroscopic imaging was used to confirm adequate reduction of the deformity and intact plate the first metatarsal phalangeal joint this was confirmed on AP and lateral images. All screws were tightened adequately. Incision was flushed with copious amounts normal sterile saline and the tourniquet was let down total tourniquet time was noted to be 65 minutes. Capsular closure was performed with running interrupted locking stitch using 2-0 Vicryl followed by subcutaneous closure with 2-0 Vicryl simple interrupted followed by skin closure with running intradermal subcuticular 4-0 Monocryl followed by quarter inch Steri-Strips Betadine paint Adaptic 4 x 4's ABD pads Kerlix and a Briceño compression posterior splint. Patient was transferred to PACU vital signs stable and vascular status intact all digits for further monitoring patient will receive a popliteal block in PACU. Patient tolerated procedure and anesthesia well in apparent satisfactory condition. She will be discharged home and maintaining nonweightbearing status to her left foot. She will follow-up in 1 week in our office. No pathologic specimens No complications Deformity was noted to be stable and reduced with application of dorsal compression plate.
[2021-10-27 16:00] VITALS: BP 114/74; BP 114/97; BP 119/89; PULSE 65; PULSE 80; RESP 16; TEMP 36.3; O2SAT 100; O2SAT 99
[2021-10-27 16:06] VITALS: BP 114/74
[2021-10-27 16:13] VITALS: BP 108/78; BP 114/74; PULSE 73; RESP 16; TEMP 36.8; O2SAT 99
[2021-10-27 16:50] VITALS: BP 114/74; BP 119/58; PULSE 54; RESP 16; TEMP 36.9; O2SAT 99
== END 2021-10-27 17:12 | disposition home or self-care (01) ==
LOC: SDC 11:26 → AC 11:46
PROVIDERS: Anesthesiology; PCP Family Medicine; Referring Provider Podiatrist; Visit Provider Podiatrist
PROC: (CPT 28750; principal; 2021-10-27 12:45)
DX: M20.22 Hallux rigidus, left foot (principal); M19.072 Primary osteoarthritis, left ankle and foot; F17.210 Nicotine dependence, cigarettes, uncomplicated; F90.9 Attention-deficit hyperactivity disorder, unspecified type
CPT/HCPCS: 28750; 01480; 73620; 76000; 81025; C1713; J7030; J2405

== ENCOUNTER 2021-12-09 19:54 | Emergency (ER) | payer MEDICAID, SELFPAY ==
[2021-12-09 19:55] VITALS: BP 123/77; PULSE 100; RESP 14; TEMP 36.9; O2SAT 98; BMI 35.5
== END 2021-12-09 20:20 | disposition left against medical advice (07) ==
LOC: ED 20:21
PROVIDERS: PCP Family Medicine
DX: Z53.21 Procedure and treatment not carried out due to patient leaving prior to being seen by health care provider (principal)

== ENCOUNTER 2022-05-15 17:00 | Outpatient (RCR) | payer MEDICAID, SELFPAY ==
--- NOTE | 2022-10-12 11:59 | HP.PT.NRP ---
Patient Information Patient Information: MERLINE COTTON was seen in my office for initial evaluation on 05/03/22. The following Plan of Care was established for this patient: POC Established Initial Frequency: 2x /Week Initial Duration: 3 Weeks Anticipated Interventions Patient/Client Instruction: Educate patient on: Condition and Plan of Care For the Purpose of:: To improve self management Therapeutic Exercise to Include: Strength training, Endurance training, Balance training, Flexibilty training, Gait and locomotor training, Active ROM and Dynamic Lumbar Stabilization For the Purpose of:: To decrease pain, To increase ROM and To improve muscle performance and motor function Cryotherapy (ice pack, ice massage): Yes For the Purpose of:: To decrease pain Last Seen Last Seen: This patient was last seen in our office . Pertinent comments regarding their Physical therapy will appear below: Pt was treated for 3 PT visits for R knee pain through the date of 05/15/22. Pt has not returned through todays date and is discontinued at this time. At this point I will be discontinuing this patient from physical therapy. I would be happy to see this patient again in the future if found appropriate by the physician. Thank you! Loy Leavitt, PT, ATC Balance/Gait/Functional tests Balance/Special Test Scores Lower Extremity Functional Score: 31
== END 2022-05-15 19:00 | disposition home or self-care (01) ==
LOC: PT 17:00
PROVIDERS: PCP Family Medicine; Referring Provider Family Medicine; Visit Provider Family Medicine
DX: S83.411D Sprain of medial collateral ligament of right knee, subsequent encounter (principal)
CPT/HCPCS: 97110; 97161

== ENCOUNTER → 2022-05-18 | Outpatient (CLI) | payer MEDICAID, SELFPAY ==
[2022-05-18 15:34] LABS: Absolute Lymphocyte Count 2.69 X10^3/uL (0.83-4.51); Absolute Neutrophil Count 3.6 X10^3/uL (2.0-7.7); Basophil# 0.05 X10^3/uL; Basophil% 0.7 % (0-1); Eosinophil# 0.06 X10^3/uL; Eosinophils% 0.9 % (0-5); Hematocrit 41.3 % (37-47); Hemoglobin 14.5 g/dL (12.0-15.0); Lymphocyte # 2.69 X10^3/ul (0.83-4.51); Lymphocyte % 39.3 % (19-41); Mean Corp Hgb Conc 35.1 g/dL (32-36); Mean Corpuscular Hgb 30.5 pg (27.0-32.0); Mean Corpuscular Volume 86.9 fL (81-99); Mean Platelet Vol. 9.3 fl (6.2-12.0); Monocyte# 0.46 X10^3/uL; Monocyte% 6.7 % (0-10); NRBC Flagged by Analyzer 0 % (0-5); Neutrophil # 3.57 X10^3/uL (2.7-7.7); Neutrophil % 52.3 % (47-70); Platelet Count 271 K/mm3 (150-450); RBC Distribution Width CV 11.6 % (11.6-14.6); Red Blood Count 4.75 M/mm3 (4.2-5.4); White Blood Count 6.8 K/mm3 (4.4-11.0)
[2022-05-18 16:34] LABS: ALB/GLOB Ratio 0.9 RATIO (0.9-2.4); AST(SGOT) 29 U/L (15-37); Alanine Aminotransfer ALT/SGPT 44 U/L (13-56); Albumin, Serum 3.6 g/dL (3.2-5.0); Alkaline Phosphatase 84 U/L (45-117); Anion Gap 6 (5-15); BUN 14 mg/dL (7-18); BUN/Creat Ratio 17.8 RATIO (10-20); Calcium,Total 8.7 mg/dL (8.5-10.1); Chloride 106 mmol/L (98-107); Creatinine, Serum 0.79 mg/dL (0.55-1.02); EST Glomerular Filtration Rate 93 mL/min (>60); Est Glom Filt Rate - Afr Amer 112 mL/min (>60); Globulin 3.8 g/dL (2.2-4.2); Glucose 84 mg/dL (74-106); Potassium 3.8 mmol/L (3.5-5.1); Protein, Total 7.4 g/dL (6.4-8.2); Sodium Level 139 mmol/L (136-145); T4 Free Direct 1.02 ng/dL (0.76-1.46); Thyroid Stim Hormone (TSH) 2.97 uIU/mL (0.358-3.74)
[2022-05-18 17:08] LABS: HIV - WCH Non-Reactive (Nonreactive); Hepatitis B Surface Antibody Reactive; Hepatitis B Surface Antigen Non-Reactive (Nonreactive); Hepatitis C Antibody Preliminary Reactive (Nonreactive)
[2022-05-20 19:06] LABS: HCV Quant. RNA PCR HCV Not Detected IU/mL (.)
[2022-05-21 10:42] LABS: Hepatitis A AB, Total Positive (Negative)
== END | disposition home or self-care (01) ==
LOC: LAB 14:37
PROVIDERS: PCP Family Medicine; Visit Provider Registered Nurse
DX: F11.20 Opioid dependence, uncomplicated (principal)
CPT/HCPCS: 36415; 80053; 84439; 84443; 85025; 86703; 86706; 86708; 86803; 87340; 87522

== ENCOUNTER 2022-05-30 16:37 | Emergency (ER) | payer MEDICAID, SELFPAY ==
[2022-05-30 16:38] VITALS: BP 128/72; PULSE 60; RESP 16; TEMP 36.6; O2SAT 98; BMI 35.4
--- NOTE | 2022-05-30 16:57 | EDS_ITS ---
HPI History of Present Illness Chief Complaint: Dental Narrative Narrative: 27-year-old female presents status post tooth extraction with postoperative bleeding. She states she just came from [facility], where she had 3 teeth in her left upper jaw extracted. She states that she pulled out a large clot from her mouth and felt a rich of blood down the back of her throat. She was unable to return to the dentist office or call because currently the office is closed. She presents because of the dental bleeding. She does not take any blood thinners. She is a smoker however. [facility] Medical History ADHD Anxiety Arthritis Back pain Blood disorder Hepatitis C History of chlamydia History of edema History of gonorrhea Hx of dislocation of elbow Migraine headache Piercing Rubella non-immune status, antepartum Shortness of breath on exertion Smoker Substance abuse Home Medications buprenorphine 5.7 mg-naloxone 1.4 mg sublingual tablet (Zubsolv) 1 tab sublingual DAILY 10/24/21 [History Last Taken Unknown] naproxen 500 mg tablet 500 mg PO BID PRN PRN Pain 10/24/21 [History Last Taken Unknown] aspirin 81 mg tablet,delayed release 81 mg PO DAILY #21 tabs 10/27/21 [Rx Last Taken Unknown] ondansetron 4 mg disintegrating tablet 4 mg PO Q8H PRN nausea and vomiting #14 tabs 10/27/21 [Rx Last Taken Unknown] oxycodone 5 mg tablet 5 mg PO Q8H PRN pain 7 days #21 tabs 10/27/21 [Rx Last Taken Unknown] Allergy/AdvReac Type Severity Reaction Status Date / Time No Known Allergies Allergy Verified 05/30/22 16:40 Social History household members: none Smoking Status: Current every day smoker tobacco type: cigarettes alcohol intake: former substance use type: former substance user ROS ROS ED ROS Narrative Constitutional: No fever, no chills. HEENT: No sore throat. No neck pain. No loss of vision. No rhinorrhea. Recent tooth extraction and left upper jaw with bleeding and clots. Cardiovascular: No chest pain. No palpitations. No pedal edema. Respiratory: No cough, no shortness of breath. Abdominal: No abdominal pain. No nausea. No vomiting. Genitourinary: No dysuria. No hematuria. Musculoskeletal: No myalgias. No arthralgias. Neurologic: No headaches. No dizziness. No lightheadedness. Skin: No rash. No change in color. Psychiatric: No depression. No anxiety. EXAM Physical Exam Narrative Exam Narrative: Afebrile. Vital signs noted. HEENT: Normocephalic. Atraumatic. PERRL, EOMI. Neck soft and supple. No point tenderness or step off. Inspection of the mouth shows clots within 3 sockets of the left upper jaw where there was recent tooth extraction, no active hemorrhaging/brisk bleeding. Airway patent. No drooling or trismus. Cardiovascular: Regular rate and rhythm. No murmurs, rubs, or gallops appreciated. Respiratory: No tachypnea. Lungs clear to auscultation bilaterally. Gastrointestinal: Abdomen soft, nontender, with normoactive bowel sounds. No rebound or guarding. Neurological: Awake. Alert. Nonfocal, nonlateralizing. Skin: No rash. Normal color. No pallor. Musculoskeletal: No pedal edema. Full range of motion extremities. Const Vital Signs: 05/30/22 16:38 Temperature 98 F Temperature Source Temporal Pulse Rate 60 Respiratory Rate 16 Blood Pressure 128/72 H Blood Pressure Mean 90 Pulse Ox 98 Oxygen Delivery Method Room Air MDM MDM MDM Narrative Medical decision making narrative: Her initial wet gauze was removed. As there is no evidence of active bleeding, I do feel that clots are forming in the socket as expected from her recent tooth extraction. Another piece of white gauze was placed that she is biting down on. She was told not to smoke, not to drink liquids through a straw, and to chew on the right side of her mouth even though she may be on a soft food diet. She will follow-up with her dentist and call the office tomorrow. I do feel she can be discharged safely home with follow-up. Return instructions were reviewed. Disposition is discharged home in stable condition. Discharge Plan Triage Chief Complaint: Dental ED Provider: Ashwin Carvajal Dx/Rx/DC Orders Clinical Impression: Surgical wound hemorrhage after dental procedure, Status post tooth extraction Instructions: ED Post Op Wound Check, Bleeding Prescriptions: No Action Zubsolv 5.7-1.4 mg Tablet, Sublingual 1 tab SUBLINGUAL DAILY naproxen 500 MG tablet 500 mg PO BID PRN PRN (Reason: Pain) oxycodone 5 mg tablet 5 mg PO Q8H PRN (Reason: pain) 7 Days Qty: 21 0RF ondansetron 4 mg tablet,disintegrating 4 mg PO Q8H PRN (Reason: nausea and vomiting) Qty: 14 0RF aspirin 81 mg tablet,delayed release (DR/EC) 81 mg PO DAILY Qty: 21 0RF Primary Care Provider: Kirby Be Referrals: Kirby Be, [Primary Care Provider] - Activity Restrictions/Additional Instructions: Follow-up with your dentist as soon as possible. Call the office tomorrow morning. If you experience continued bleeding, bite down on a wet piece of gauze for at least 15 minutes, return to the emergency department with worsening symptoms. Disposition Disposition: Home, Self Care Discharge Date/Time: 05/30/22 17:29
== END 2022-05-30 17:29 | disposition home or self-care (01) ==
LOC: ED 17:23
PROVIDERS: Emergency Provider Emergency Medicine; PCP Family Medicine; Visit Provider Emergency Medicine
DX: K91.840 Postprocedural hemorrhage of a digestive system organ or structure following a digestive system procedure (principal); Y83.8 Other surgical procedures as the cause of abnormal reaction of the patient, or of later complication, without mention of misadventure at the time of the procedure; F17.210 Nicotine dependence, cigarettes, uncomplicated
CPT/HCPCS: 99282

== ENCOUNTER 2022-06-16 11:17 | Emergency (ER) | payer MEDICAID, SELFPAY ==
[2022-06-16 11:17] VITALS: BP 142/120; PULSE 90; RESP 18; TEMP 36.6; O2SAT 98; BMI 36.3
--- NOTE | 2022-06-16 11:40 | CT_ITS ---
STUDY: CT BRAIN WITHOUT CONTRAST REASON FOR EXAM: Female, 27 years old. Headache RADIATION DOSAGE (If Supplied By Facility): CTDIvol = ( 44.99 ) mGy, DLP = ( 745.49 ) mGycm TECHNIQUE: Transaxial CT imaging of the brain was performed without administration of intravenous contrast material. Individualized dose optimization techniques were used for this CT. COMPARISON: Comparison is made with prior study dated November 21, 2014. FINDINGS: Normal soft tissue structures. Normal calvarium. Normal size ventricles and extra-axial spaces for the patient''s age. Normal white matter tracts of the cerebral hemispheres. Normal basal ganglia and thalami. Normal brainstem. Normal cerebellum. There is no intracranial hemorrhage. There are no findings of an acute ischemic infarction. Normal visualized paranasal sinuses. CT/Brain/Head without Contrast IMPRESSION: Normal unenhanced CT scan of the brain. Electronically Signed: Ludwin Lincoln MD at 13:20 EST ,
--- NOTE | 2022-06-16 11:43 | EX.ED.DYSGE1 ---
HPI <SYL Penn - Last Filed: 06/16/22 14:32> History of Present Illness Chief Complaint: Headache Narrative Narrative: 27-year-old female presents with a migraine. Yesterday she started to have cough and congestion and body aches. She had a headache off and on throughout the day which worsened today. It is squeezing and throbbing in nature. It feels similar to her previous headaches she is gotten over the last few years. She gets light and sound sensitivity and is nauseated. No vomiting, fever or neck pain. No head trauma. She states she has tried a few migraine medications with no relief and now just takes Excedrin [id number]. She has never had a CT or MRI. PFSH <SYL Penn - Last Filed: 06/16/22 14:32> [facility] Medical History ADHD Anxiety Arthritis Back pain Blood disorder Hepatitis C History of chlamydia History of edema History of gonorrhea Hx of dislocation of elbow Migraine headache Piercing Rubella non-immune status, antepartum Shortness of breath on exertion Smoker Substance abuse Home Medications buprenorphine 5.7 mg-naloxone 1.4 mg sublingual tablet (Zubsolv) 1 tab sublingual DAILY 10/24/21 [History Last Taken Unknown] naproxen 500 mg tablet 500 mg PO BID PRN PRN Pain 10/24/21 [History Last Taken Unknown] aspirin 81 mg tablet,delayed release 81 mg PO DAILY #21 tabs 10/27/21 [Rx Last Taken Unknown] ondansetron 4 mg disintegrating tablet 4 mg PO Q8H PRN nausea and vomiting #14 tabs 10/27/21 [Rx Last Taken Unknown] oxycodone 5 mg tablet 5 mg PO Q8H PRN pain 7 days #21 tabs 10/27/21 [Rx Last Taken Unknown] Allergy/AdvReac Type Severity Reaction Status Date / Time No Known Allergies Allergy Verified 05/30/22 16:40 Social History household members: none Smoking Status: Current every day smoker tobacco type: cigarettes alcohol intake: former substance use type: former substance user ROS <SYL Penn - Last Filed: 06/16/22 14:32> ROS ED ROS Narrative Constitutional: Negative for fever, chills, malaise. Eyes: Negative for visual change. ENT: Positive for rhinorrhea. CVS: Negative for palpitations, chest pain, syncope. Respiratory: Positive for cough. Negative for shortness of breath. GI: Positive for nausea. No vomiting. Neuro: Positive for headache, negative for motor/sensory dysfunction. Skin: Negative for rash, abscess, or wound. Musc: Negative for joint pain, swelling, trauma. EXAM <SYL Penn - Last Filed: 06/16/22 14:32> Physical Exam Narrative Exam Narrative: CONST: Patient sitting in no acute distress. EYES: Normal inspection. PERRLA, EOMI. ENT: Normal inspection, moist mucous membranes. NECK: Normal inspection. Supple, no meningismus. RESP: No respiratory distress, CTAB. CVS: Regular rate and rhythm, no murmur, no gallop. SKIN: Color normal, no rash, warm, dry, intact. EXTREMITIES: Normal appearance, no pedal edema. NEURO: Oriented x4. No upper or lower extremity drift, normal strength and sensation, normal finger-nose bilaterally. PSYCH: Normal affect. Const Vital Signs: 06/16/22 11:17 06/16/22 13:28 Temperature 97.8 F 98.1 F Temperature Source Temporal Pulse Rate 90 78 Respiratory Rate 18 16 Blood Pressure 142/120 H 126/78 H Blood Pressure Mean 127 Pulse Ox 98 99 Oxygen Delivery Method Room Air <Dr. Jimmy Echevarria MD - Last Filed: 06/16/22 15:19> Physical Exam Const Vital Signs: 06/16/22 11:17 06/16/22 13:28 Temperature 97.8 F 98.1 F Temperature Source Temporal Pulse Rate 90 78 Respiratory Rate 18 16 Blood Pressure 142/120 H 126/78 H Blood Pressure Mean 127 Pulse Ox 98 99 Oxygen Delivery Method Room Air MDM <SYL Penn - Last Filed: 06/16/22 14:32> [facility] MDM Narrative Medical decision making narrative: Patient presents with gradual onset migraine, light sensitivity, nausea. It similar to her previous headaches. She is also had upper respiratory symptoms. She appears well and nontoxic with normal vital signs. She is awake alert and neurologically intact. No signs of meningismus. Since she has never had head imaging a CT scan was obtained and is unremarkable. COVID/flu testing negative. After IV fluids, Toradol, Compazine, and Benadryl her migraine has resolved. She will be discharged home and can take [id number] analgesia as needed. Return for new or worsening symptoms. She was discharged in stable condition. Differential: Migraine, tension headache, subarachnoid hemorrhage, upper respiratory infection, viral syndrome Test considered but not ordered: She does not need a lumbar puncture since headache was gradual onset, neurologically intact, I do not suspect SAH. I have personally performed a face to face assessment of the patient and have reviewed the SYD Note. I performed a substantive portion of the visit including all aspects of the following. My keane findings include: History is remarkable for chronic headaches. She has never had a work-up for migraine headaches. She denies fever, chills night sweats. She does endorse photophobia. She is unaware of any triggers. She denies rhinorrhea, congestion postnasal drainage. Denies sore throat. She denies cardiac or respiratory symptoms. She denies GI symptoms other than nausea. She denies urologic symptoms. She states she is a lesbian. She is in a monogamous relationship. She denies skin lesions. She denies myalgias arthralgias. Denies joint swelling. There is no family history of subarachnoid hemorrhage or aneurysm. Maternal grandmother has history of migraine headaches. She does endorse motion sickness. Exam is vital signs remarkable slight elevation of blood pressure. She is obese with a BMI of 36. Head is atraumatic normocephalic. Ears normal. Nares patent. Posterior pharynx out erythema or exudate. Uvula midline. Neck is supple. Trachea is midline. Heart lung exams unremarkable. She is alert oriented x3. Cranials 2 through 12 are intact. Motor sensory intact. DTRs are symmetric with no clonus or Bransky sign. There is no dysmetria. Funduscopic exam reveals no papilledema. Cup-to-disc ratio is normal. Medical Decision Making CT of the head was obtained since this headache is different and she has never had a work-up. She was medicated with Benadryl, Toradol and Reglan. Other additions or changes: [None] Radiography Diagnostic Testing: Clinical Impression(s) from Imaging Studies Brain CT 06/16/22 11:40 IMPRESSION: Normal unenhanced CT scan of the brain. Electronically Signed: Ludwin Lincoln MD at 13:20 EST , <Dr. Jimmy Echevarria MD - Last Filed: 06/16/22 15:19> [facility] Narrative Medical decision making narrative: I have personally performed a face to face assessment of the patient and have reviewed the SYD Note. I performed a substantive portion of the visit including all aspects of the following. My keane findings include: History is remarkable for chronic headaches. She has never had a work-up for migraine headaches. She denies fever, chills night sweats. She does endorse photophobia. She is unaware of any triggers. She denies rhinorrhea, congestion postnasal drainage. Denies sore throat. She denies cardiac or respiratory symptoms. She denies GI symptoms other than nausea. She denies urologic symptoms. She states she is a lesbian. She is in a monogamous relationship. She denies skin lesions. She denies myalgias arthralgias. Denies joint swelling. There is no family history of subarachnoid hemorrhage or aneurysm. Maternal grandmother has history of migraine headaches. She does endorse motion sickness. Exam is vital signs remarkable slight elevation of blood pressure. She is obese with a BMI of 36. Head is atraumatic normocephalic. Ears normal. Nares patent. Posterior pharynx out erythema or exudate. Uvula midline. Neck is supple. Trachea is midline. Heart lung exams unremarkable. She is alert oriented x3. Cranials 2 through 12 are intact. Motor sensory intact. DTRs are symmetric with no clonus or Bransky sign. There is no dysmetria. Funduscopic exam reveals no papilledema. Cup-to-disc ratio is normal. Medical Decision Making CT of the head was obtained since this headache is different and she has never had a work-up. She was medicated with Benadryl, Toradol and Reglan. Other additions or changes: [None] History & Record Review Discussion w/independent historian: Patient and Significant other Radiography Diagnostic Testing: Clinical Impression(s) from Imaging Studies Brain CT 06/16/22 11:40 IMPRESSION: Normal unenhanced CT scan of the brain. Electronically Signed: Ludwin Lincoln MD at 13:20 EST , Discharge Plan Triage Chief Complaint: Headache ED Midlevel Provider: Rupal Leos ED Provider: Jimmy Echevarria Dx/Rx/DC Orders Clinical Impression: Migraine, Acute upper respiratory infection Instructions: ED, Migraine (Classical) Prescriptions: No Action Zubsolv 5.7-1.4 mg Tablet, Sublingual 1 tab SUBLINGUAL DAILY naproxen 500 MG tablet 500 mg PO BID PRN PRN (Reason: Pain) oxycodone 5 mg tablet 5 mg PO Q8H PRN (Reason: pain) 7 Days Qty: 21 0RF ondansetron 4 mg tablet,disintegrating 4 mg PO Q8H PRN (Reason: nausea and vomiting) Qty: 14 0RF aspirin 81 mg tablet,delayed release (DR/EC) 81 mg PO DAILY Qty: 21 0RF Stand Alone Forms: ED Work / School Excuse Primary Care Provider: Kriby Be Referrals: Kirby Be DO [Primary Care Provider] - Activity Restrictions/Additional Instructions: Take Tylenol or Motrin every 6 hours as needed for pain. Return to the ER if symptoms worsen. Disposition Disposition: Home, Self Care Discharge Date/Time: 06/16/22 13:38
[2022-06-16] MEDS: Ketorolac 15 MG/ML Vial IV (12:31)
[2022-06-16] MEDS: 0.9% Normal Saline 1,000 ML 999 ML IV (12:31)
[2022-06-16] MEDS: DiphenhydrAMINE 50 MG/ML Syringe 25 MG IV (12:32)
[2022-06-16] MEDS: proCHLORPERazine 10 MG/2 ML Vial 5 MG IV (12:32)
[2022-06-16 13:28] VITALS: BP 126/78; PULSE 78; RESP 16; TEMP 36.7; O2SAT 99
== END 2022-06-16 13:38 | disposition home or self-care (01) ==
PROVIDERS: Emergency Provider Emergency Medicine; PCP Family Medicine; Visit Provider Emergency Medicine
DX: G43.909 Migraine, unspecified, not intractable, without status migrainosus (principal); J06.9 Acute upper respiratory infection, unspecified; F17.210 Nicotine dependence, cigarettes, uncomplicated; Z79.899 Other long term (current) drug therapy; Z79.82 Long term (current) use of aspirin
CPT/HCPCS: 70450; 87428; 96374; 96375; 99283

== ENCOUNTER → 2022-09-15 | Outpatient (CLI) | payer MEDICAID, SELFPAY ==
[2022-09-15 12:44] LABS: Absolute Neutrophil Count 4.2 X10^3/uL (2.0-7.7); Basophil# 0.04 X10^3/uL; Basophil% 0.6 % (0-1); Eosinophil# 0.07 X10^3/uL; Hematocrit 44.8 % (37-47); Hemoglobin 15.3 g/dL (12.0-15.0); Lymphocyte % 29.8 % (19-41); Mean Corp Hgb Conc 34.2 g/dL (32-36); Mean Corpuscular Hgb 30.8 pg (27.0-32.0); Mean Corpuscular Volume 90.3 fL (81-99); Mean Platelet Vol. 10.1 fl (6.2-12.0); Monocyte# 0.59 X10^3/uL; Monocyte% 8.4 % (0-10); NRBC Flagged by Analyzer 0 % (0-5); Neutrophil # 4.23 X10^3/uL (2.7-7.7); Neutrophil % 59.9 % (47-70); Platelet Count 252 K/mm3 (150-450); RBC Distribution Width SD 39.6 fl (35.1-43.9); Red Blood Count 4.96 M/mm3 (4.2-5.4); White Blood Count 7.1 K/mm3 (4.4-11.0)
[2022-09-15 13:12] LABS: CRP < 2.90 mg/L (0.0-3.0)
== END | disposition home or self-care (01) ==
LOC: BFHLAB 09:22
PROVIDERS: PCP Family Medicine; Referring Provider Family Medicine; Visit Provider Family Medicine
DX: R10.31 Right lower quadrant pain (principal)
CPT/HCPCS: 36415; 85025; 86140; 87086; 87088

== ENCOUNTER → 2023-06-29 | Outpatient (CLI) | payer MEDICAID, SELFPAY ==
[2023-06-29 16:40] LABS: Absolute Lymphocyte Count 2.83 X10^3/uL (0.83-4.51); Absolute Neutrophil Count 3.3 X10^3/uL (2.0-7.7); Basophil# 0.05 X10^3/uL; Basophil% 0.7 % (0-1); Eosinophil# 0.04 X10^3/uL; Eosinophils% 0.6 % (0-5); Hemoglobin 15.5 g/dL (12.0-15.0); Lymphocyte # 2.83 X10^3/ul (0.83-4.51); Lymphocyte % 42.2 % (19-41); Mean Corp Hgb Conc 34.4 g/dL (32-36); Mean Corpuscular Hgb 30.4 pg (27.0-32.0); Mean Corpuscular Volume 88.2 fL (81-99); Mean Platelet Vol. 10.2 fl (6.2-12.0); Monocyte# 0.47 X10^3/uL; NRBC Flagged by Analyzer 0 % (0-5); Neutrophil # 3.29 X10^3/uL (2.7-7.7); Neutrophil % 49.2 % (47-70); Platelet Count 233 K/mm3 (150-450); RBC Distribution Width CV 11.2 % (11.6-14.6); RBC Distribution Width SD 35.9 fl (35.1-43.9); White Blood Count 6.7 K/mm3 (4.4-11.0)
[2023-06-29 17:13] LABS: Internal QC Validated? YES +Cl - CLEAR BKGD; Pregnancy, Urine Negative Negative
[2023-06-29 17:49] LABS: AST(SGOT) 18 U/L (15-37); Alanine Aminotransfer ALT/SGPT 29 U/L (13-56); Albumin, Serum 3.9 g/dL (3.2-5.0); Alkaline Phosphatase 70 U/L (45-117); Anion Gap 6 (5-15); BUN 14 mg/dL (7-18); BUN/Creat Ratio 16.4 RATIO (10-20); Calcium,Total 8.9 mg/dL (8.5-10.1); Chloride 107 mmol/L (98-107); Creatinine, Serum 0.86 mg/dL (0.55-1.02); EST Glomerular Filtration Rate 84 mL/min (>60); Est Glom Filt Rate - Afr Amer 101 mL/min (>60); Globulin 3.9 g/dL (2.2-4.2); Glucose 42 mg/dL (74-106); Potassium 3.4 mmol/L (3.5-5.1); Protein, Total 7.8 g/dL (6.4-8.2); Sodium Level 139 mmol/L (136-145)
[2023-06-29 17:50] LABS: HIV - WCH Non-Reactive (Nonreactive); Hepatitis B Surface Antibody Reactive; Hepatitis B Surface Antigen Non-Reactive (Nonreactive)
[2023-06-30 06:07] LABS: Hepatitis C Antibody Reactive (Nonreactive)
[2023-07-02 14:08] LABS: HCV Quant. RNA PCR HCV Not Detected IU/mL (.); Hepatitis A IgM Antibody Negative (Negative)
== END | disposition home or self-care (01) ==
PROVIDERS: PCP Family Medicine
DX: F11.20 Opioid dependence, uncomplicated (principal)
CPT/HCPCS: 36415; 80053; 81025; 85025; 86703; 86706; 86709; 86803; 87340; 87522

== ENCOUNTER → 2024-07-11 | Outpatient (CLI) | payer MEDICAID, SELFPAY | END | disposition home or self-care (01) | LOC: LABSPEC 17:46 | PROVIDERS: PCP Family Medicine; Visit Provider Nurse Practitioner Family | DX: N64.52 Nipple discharge (principal) | CPT/HCPCS: 87070; 87077; 87186; 87205 ==

== ENCOUNTER → 2024-07-25 | Outpatient (CLI) | payer BC, SELFPAY ==
--- NOTE | 2024-07-25 09:20 | BI_ITS ---
EXAM: DIAG MAMM W/CAD, BILAT; BILAT BRST SUSIE STAND ALONE 07/25/2024 CLINICAL HISTORY: 29-year-old female presents with bilateral nipple discharge (bloody on the right and yellowish on the left) x1 month. The patient completed 10 day course of antibiotics with improved symptoms. No family history of breast cancer. TECHNIQUE: Bilateral Diagnostic digital breast tomosynthesis with 2D and 3D images. Computer aided detection. COMPARISON: Baseline examination, no priors. FINDINGS: TISSUE DENSITY: The breast tissue is heterogenously dense, which may obscure small masses. The mammogram demonstrates that the patient has dense breasts. Supplemental screening with whole breast ultrasound or MRI may be considered for further evaluation. Bilateral Breast Mammographic Findings: Left breast: There is asymmetry in the central and superior left breast at posterior depth, which persists with additional imaging. There are no suspicious mammographic findings in the retroareolar region to account for patient's non-bloody nipple discharge. Right breast: The asymmetry in the central right breast at posterior depth partially effaces on today's examination with the additional imaging. There are no suspicious mammographic findings in the retroareolar regions of the account for the patient's bloody nipple discharge. BI/DIAG MAMM W/CAD, BILAT IMPRESSION: 1. Diagnostic ultrasound of the superior and central left breast, as well as t he retroareolar regions is recommended. 2. Diagnostic ultrasound of the central right breast, as well as the retroareo lar region is recommended. OVERALL FINAL ASSESSMENT: BIRADS 0 Incomplete: Need additional imaging evaluati on and/or prior mammograms for comparison.. RECOMMENDATION: Recommendation: Ultrasound. A letter with findings and recommendations will be mailed to the patient. Reading Location: [facility]
--- NOTE | 2024-07-25 09:22 | BI_ITS ---
EXAM: DIAG MAMM W/CAD, BILAT; BILAT BRST SUSIE STAND ALONE 07/25/2024 CLINICAL HISTORY: 29-year-old female presents with bilateral nipple discharge (bloody on the right and yellowish on the left) x1 month. The patient completed 10 day course of antibiotics with improved symptoms. No family history of breast cancer. TECHNIQUE: Bilateral Diagnostic digital breast tomosynthesis with 2D and 3D images. Computer aided detection. COMPARISON: Baseline examination, no priors. FINDINGS: TISSUE DENSITY: The breast tissue is heterogenously dense, which may obscure small masses. The mammogram demonstrates that the patient has dense breasts. Supplemental screening with whole breast ultrasound or MRI may be considered for further evaluation. Bilateral Breast Mammographic Findings: Left breast: There is asymmetry in the central and superior left breast at posterior depth, which persists with additional imaging. There are no suspicious mammographic findings in the retroareolar region to account for patient's non-bloody nipple discharge. Right breast: The asymmetry in the central right breast at posterior depth partially effaces on today's examination with the additional imaging. There are no suspicious mammographic findings in the retroareolar regions of the account for the patient's bloody nipple discharge. BI/Bilat Brst Susie Stand Alone IMPRESSION: 1. Diagnostic ultrasound of the superior and central left breast, as well as t he retroareolar regions is recommended. 2. Diagnostic ultrasound of the central right breast, as well as the retroareo lar region is recommended. OVERALL FINAL ASSESSMENT: BIRADS 0 Incomplete: Need additional imaging evaluati on and/or prior mammograms for comparison.. RECOMMENDATION: Recommendation: Ultrasound. A letter with findings and recommendations will be mailed to the patient. Reading Location: [facility]
== END | disposition home or self-care (01) ==
PROVIDERS: PCP Family Medicine; Referring Provider Nurse Practitioner Family; Visit Provider Nurse Practitioner Family
DX: N64.52 Nipple discharge (principal)
CPT/HCPCS: 77062; 77066; G0279

== ENCOUNTER → 2024-08-04 | Outpatient (CLI) | payer BC, SELFPAY ==
--- NOTE | 2024-08-04 13:23 | US_ITS ---
PROCEDURE: BREAST LIMITED UNILATERAL 08/04/2024 REASON FOR EXAM: NIPPLE DISCHARGE Left nipple discharge which is yellowish in color. It is not spontaneous. It has to be expressed. Inconclusive mammogram. Heterogeneously dense breast tissue seen on mammogram. TECHNIQUE: Targeted left breast ultrasound. COMPARISON: Mammogram dated 07/25/2024 FINDINGS: Left breast ultrasound was targeted to the retroareolar region of the left breast.. There are multiple ectatic ducts identified in the retroareolar region of the left breast measuring up to 4 mm. There is heterogeneous complex fluid which is mobile seen within several of the ducts. The ducts are compressible. No suspicious solid filling defect is seen in any of the ducts. There is a benign-appearing cyst identified at the 2 o'clock, 6 cm from nipple position measuring 5 x 4 x 2 mm. US/Breast Limited Unilateral IMPRESSION: Impression: There are minimally ectatic ducts identified in the retroareolar re gion of the left breast which have internal echoes within them. The internal echoes appears to be fluid which is mobile. The typ e of discharge that she is describing is typically not associated with malignancy and may be due to hormone levels. It may be of value to have her hormone levels checked. If the discharge becomes bloody or clear like water or the discharge becomes spontaneo us, a follow-up ultrasound or MRI of the breasts should be considered. Otherwise no further workup is indicated at this time. Birads: BI-RADS 2: BENIGN. RECOMMEND ANNUAL MAMMOGRAPHIC SCREENING. Reading Location: [id number]
--- NOTE | 2024-08-04 13:23 | US_ITS ---
PROCEDURE: BREAST LIMITED UNILATERAL 08/04/2024 REASON FOR EXAM: NIPPLE DISCHARGE Right nipple discharge which is yellowish in color. The discharge was bloody at 1 time but no longer is. It is not spontaneous. It has to be expressed. Inconclusive mammogram. Heterogeneously dense breast tissue seen on mammogram. TECHNIQUE: Targeted left breast ultrasound. COMPARISON: Mammogram dated 07/25/2024 FINDINGS: Mammogram dated 07/25/2024 US/Breast Limited Unilateral IMPRESSION: Impression: There are minimally ectatic ducts identified in the retroareolar re gion of the right breast which have internal echoes within them. The internal echoes appears to be fluid which is mobile. T he type of discharge that she is describing is typically not associated with malignancy and may be due to hormone levels. It may be of value to have her hormone levels checked. If the discharge becomes bloody or clear like water or the discharge becomes spontaneous, a follow-up ultrasound or MRI of the breasts should be considered. Otherwise no further workup is indicated a t this time. Birads: BI-RADS 2: BENIGN. RECOMMEND ANNUAL MAMMOGRAPHIC SCREENING. Reading Location: [id number]
== END | disposition home or self-care (01) ==
LOC: OPUS 13:21
PROVIDERS: PCP Family Medicine; Referring Provider Nurse Practitioner Family; Visit Provider Nurse Practitioner Family
DX: N64.52 Nipple discharge (principal)
CPT/HCPCS: 76642